=== PATIENT | female | born 1990 | race Caucasian/White ===

== ENCOUNTER 2017-10-28 23:01 | Emergency (ER) | payer MEDICAID, SELFPAY ==
[2017-10-28 23:02] VITALS: BP 157/102; PULSE 102; RESP 16; TEMP 36.3; O2SAT 97; BMI 47.5
[2017-10-29 00:06] LABS: Absolute Lymphocyte Count 2.15 X10^3/ul (0.83-4.51); Absolute Neutrophil Count 9.4 X10^3/uL (2.0-7.7); Basophil# 0.01 X10^3/uL; Basophil% 0.1 % (0-1); Eosinophil# 0.24 X10^3/uL; Eosinophils% 1.9 % (0-5); Hematocrit 45.1 % (37-47); Hemoglobin 14.9 g/dl (12.0-15.0); Lymphocyte # 2.15 X10^3/ul (4.0); Lymphocyte % 16.9 % (19-41); Mean Corpuscular Hgb 26.8 pg (27.0-32.0); Mean Corpuscular Volume 81.3 fL (81-99); Monocyte# 0.88 X10^3/uL; Monocyte% 6.9 % (0-10); Neutrophil # 9.43 X10^3/uL (2.7-7.7); Neutrophil % 73.9 % (47-70); Platelet Count 262 K/mm3 (150-450); RBC Distribution Width CV 14.4 % (11.6-14.6); RBC Distribution Width SD 41.9 fl (35.1-43.9); Red Blood Count 5.55 M/mm3 (4.2-5.4); White Blood Count 12.8 K/mm3 (4.4-11.0)
[2017-10-29 00:12] LABS: POSITIVE COUNT NO; POSITIVE DIFFERENTIAL NO; POSITIVE MORPHOLOGY NO
[2017-10-29 00:27] LABS: ALB/GLOB Ratio 0.8 RATIO (0.9-2.4); AST(SGOT) 22 U/L (15-37); Alanine Aminotransfer ALT/SGPT 41 U/L (13-56); Albumin, Serum 3.5 g/dL (3.2-5.0); Alkaline Phosphatase 118 U/L (45-117); Anion Gap 8 (5-15); BUN 10 mg/dL (7-18); Calcium,Total 8.1 mg/dL (8.5-10.1); Chloride 109 mmol/L (98-107); Creatinine, Serum 0.84 mg/dL (0.55-1.02); EST Glomerular Filtration Rate 87 mL/min (>60); Est Glom Filt Rate - Afr Amer 105 mL/min (>60); Estimated Creatinine Clearance 80.27 ml/min; Globulin 4.4 g/dL (2.2-4.2); Glucose 85 mg/dL (74-106); Lipase 156 U/L (73-393); Potassium 3.9 mmol/L (3.5-5.1); Protein, Total 7.9 g/dL (6.4-8.2); Sodium Level 143 mmol/L (136-145)
[2017-10-29 00:40] LABS: Color, Urine Yellow (Yellow); Glucose, Dipstick Normal (Normal); Ketone-Dipstick Negative (Negative); Leukocyte Esterase-Dipstick 25 /ul (Negative); Nitrite-Dipstick Negative (Negative); Occult Blood-Urine 50 /ul (Negative); Protein-Dipstick Negative (Negative); Urine Bilirubin Dipstick Negative (Negative); Urine Clarity Sl. Cloudy (Clear); Urine Urobilinogen Normal (Normal); Urine pH 6.5 (5.0 - 8.0)
[2017-10-29 00:46] LABS: Hyaline Cast 0-5 SEEN /lpf (0-5); Squamous Epithelial Cells - UA 0-5 SEEN /hpf (5-10)
[2017-10-29 00:47] LABS: Mucous, Urine RARE /hpf (<or=2+); Red Blood Cells-Urine 0-5 SEEN /hpf (0-5); White Blood Cells 0-5 SEEN /hpf (0-5)
[2017-10-29 00:48] LABS: Bacteria RARE /hpf (None Seen)
[2017-10-29 00:51] LABS: Pregnancy, Serum, hCG Quali. NEGATIVE Negative (0-9 Nonpreg)
--- NOTE | 2017-10-29 00:55 | CT_ITS ---
STUDY: CT ABDOMEN AND PELVIS WITHOUT CONTRAST REASON FOR EXAM: Female, 26 years old. Abdominal pain after eating. RADIATION DOSAGE (If Supplied By Facility): CTDIvol = ( 22.83 ) mGy, DLP = ( 1266.17 ) mGycm TECHNIQUE: Transaxial images were obtained from the dome of the diaphragm to the symphysis pubis without oral contrast, and without intravenous contrast. Sagittal and coronal images were reconstructed. Individualized dose optimization techniques were used for this CT. COMPARISON: None. FINDINGS: The visualized lung bases are unremarkable. The visualized portions of the heart are within normal limits. Normal liver. There are surgical clips in the gallbladder fossa consistent with a prior cholecystectomy. Normal spleen. Normal pancreas. Normal bilateral adrenal glands. Normal right kidney. Normal left kidney. Normal visualized stomach. There is no evidence for dilated bowel, ascites or pneumoperitoneum. The small bowel has a grossly normal appearance. The descending colon is not distended which gives appearance of mild thickening of hightower. The colon has a grossly normal appearance otherwise. The appendix is visualized and appears normal. Normal abdominal aorta. Normal inferior vena cava. Normal retroperitoneum. Normal urinary bladder. Normal visualized uterus. The patient has an IUD. There is a small umbilical hernia containing fat. There is narrowing of L5-S1 disc space with vacuum disc phenomenon consistent with degenerative disc disease. CT/Abdomen/Pelvis without Cont IMPRESSION: 1. No CT evidence of acute intra-abdominal disease. 2. Cholecystectomy. Electronically Signed: Bev Cee MD at 2:03 EDT , Service support ,
--- NOTE | 2017-10-29 02:27 | ED.VISSUMM ---
- ER Visit Summary Date of Service: 10/29/17 Chief Complaint: [Abdominal pain] History of Present Illness: The patient is a 26 F [presents to the emergency department with complaint of abdominal pain that started about a month ago. Patient's had pain intermittently. Patient states that it is typically brought on after eating. Patient states it can linger for hours. Patient's had some nausea with it but no vomiting. Patient denies any blood in her stool or black tarry stools. Patient has tried using ibuprofen but does not help the pain. Patient has taken Tums and has not helped the pain. Patient tells me she has had prior cholecystectomy. Patient denies urinary symptoms. Patient has not had a fever.] Physical Examination: [HEENT-PERRLA, EOMI. Cranial nerves II through XII grossly intact. TMs clear. Mucous membranes moist. No adenopathy. Cardiovascular-regular rate and rhythm without murmur or ectopy Lungs-clear to auscultation, chest wall stable without crepitus or subcu emphysema Abdomen-normoactive bowel sounds, soft. Patient has tenderness over the epigastric region with some guarding. There is no rebound, rigidity, or perineal signs. Patient is morbidly obese. Extremities-intact ?4, normal range of motion, normal pulses, atraumatic] Test Results: [CBC with differential showed an elevated white blood cell count of 12.8, hemoglobin 15, hematocrit 45, platelets 262. Chemistries were normal. LFTs unremarkable. Urinalysis was normal. HCG was negative. CT scan without contrast showed nothing acute and showed prior cholecystectomy.] Emergency Department Course and Treatment: [Patient initially given a GI cocktail and she had some improvement in her symptoms with that but then the pain started to come back.] I suspect patient may have gastritis versus peptic ulcer. Treatment Plan: [Patient will be started on Prevacid and will be given a referral to gastroenterology on-call.] Disposition: [Discharged to home in stable condition] Impression: [Abdominal pain-etiology uncertain] This note was generated with [employer] dictation software. It may contain incorrect words, spelling, and punctuation that were not noted in review of the chart prior to signing ED Disposition - Plan for ED Patient: Chief Complaint: Abd Pain Referrals: Care Physician,No Primary [Primary Care Provider] -
--- NOTE | 2017-10-29 02:29 | ED.DEP ---
ED Disposition - Plan for ED Patient: Chief Complaint: Abd Pain Instructions: ED Abdominal Pain Unkn Cause, ED PUD Vs Gastritis Prescriptions: Lansoprazole [Prevacid] 30 mg PO DAILY #30 cap Referrals: Care Physician,No Primary [Primary Care Provider] - Tate Beavers MD [STAFF PHYSICIAN] - 5-7 Days
[2017-10-29 02:37] VITALS: BP 130/68; PULSE 92; RESP 18; O2SAT 95
== END 2017-10-29 02:37 | disposition home or self-care (01) ==
LOC: ED 23:22
PROVIDERS: Emergency Provider Emergency Medicine
DX: R10.13 Epigastric pain (principal); E66.01 Morbid (severe) obesity due to excess calories; Z68.42 Body mass index [BMI] 45.0-49.9, adult; Z90.49 Acquired absence of other specified parts of digestive tract; Z72.0 Tobacco use
CPT/HCPCS: 74176; 80053; 81001; 83690; 84703; 85025; 99285; A4216

== ENCOUNTER 2019-05-10 18:59 | Emergency (ER) | payer MEDICAID, SELFPAY ==
[2019-05-10 19:00] VITALS: BP 160/118; PULSE 117; RESP 17; TEMP 37.3; O2SAT 97; BMI 43.6
--- NOTE | 2019-05-10 19:29 | ED.VIS.GEN ---
History of Present Illness Chief Complaint: Suicidal Informant: Patient Onset: Today Current Severity: Mild Narrative: Patient presents with family and police apparently she has history of depression she is followed by the [facility] she is on medications she is been doing well she indicates she has not been sick anyway no drug or alcohol use no access to guns, indicates she has been under some increasing stress over the last few days and she put a Facebook post up that said something to the effect that I am not going to kill myself do not worry, someone saw that post to call the police the police did not know where she was they went to and address with she thought that she might be she then came out when she knew the police were looking for her, the police insisted that she come to the hospital although she states that her boyfriend who lives with her and knows her quite well states she did not mean to suggest in any way that she was suicidal, She adamantly denies being suicidal she indicates the person read that post misunderstood it, the boyfriend concurs and stating that she is not suicidal or homicidal but did not wish to fight with the police so she came in She is never been admitted for psychiatric reason she has no history of suicide attempt and again no drug or alcohol use no access to guns Past Medical History - Allergies and Home Meds Allergies/Adverse Reactions: Allergies No Known Allergies Allergy (Verified 05/10/19 19:00) Primary Care Physician: Care Physician,No Primary [Primary Care Provider] - Past Medical History: - Smoking Status: Current every day smoker Review of Systems ROS: - Includes as above General: Denies: Chills, Fever, Sweats Eyes: Denies: Visual changes - bilaterally, Diplopia ENT: Denies: Rhinorrhea, Sore throat Cardiovascular: Denies: Chest pain, Palpitations Respiratory: Denies: Dyspnea, Cough, Dyspnea on exertion Gastrointestinal: Denies: Abdominal pain, Nausea, Vomiting, Diarrhea, Melena, Hematochezia Genitourinary: Denies: Dysuria, Hematuria, Frequency Musculoskeletal: Denies: Back pain, Extremity Pain Skin: Denies: Rash, Wounds Neurological: Denies: Headache, Weakness, Numbness Physical Exam Vital Signs/Narrative: Vital Signs Temp Pulse Resp BP Pulse Ox 05/10/19 19:00 99.2 F H 117 H 17 160/118 H 97 General: Well nourished, Well developed, No Acute Distress Head: Normocephalic, Atraumatic Eyes: Perrl, EOMI ENT: Moist mucous membranes, No rhinorrhea Neck: Supple, Nontender Cardiovascular: Regular rate, Regular rhythm, No murmurs Respiratory: No distress, CTA bilaterally, Chest nontender Abdomen: Soft, Nontender, Nondistended, Normal bowel sounds Back: Nontender, Normal Inspection Extremities: Nontender, No edema Skin: Normal color, No rash Neurological: Alert, Oriented x3, Cranial nerves II-XII grossly intact, Normal Strength, Normal Sensation Psychological: Normal affect, Normal Mood Diagnostic/Tx/Re-eval - Medical Decision Making Patient is resting company the bed she is very awake and alert oriented very cooperative has quite a bit of insight had a long conversation with her and the boyfriend she assures me she is not suicidal she indicates that she realizes now she would not have put that post on [place] to the general community, she again indicates she has no intention of hurting herself or others she does agree to stay in the emergency department under observation will obtain some screening labs, will have certified social workers in health care talk to her The patient had limited screening labs as additional blood could not be drawn she did not wish to have additional attempts made, the screening that is available is generally unremarkable urine tox positive for cannabis, certified social workers in health care spoke with her they agree she can be safe to be discharged to follow-up with crisis counselor tomorrow and return for change in symptoms boyfriend the patient again concur that there is no signs of suicidal ideation or homicidal ideation Impression final Situational stress and depression Home stable ED Disposition - Plan for ED Patient: Diagnosis: Depression Instructions: Depression, CONTRACT, No Harm Referrals: Care Physician,No Primary [Primary Care Provider] - Additional Instructions: Follow up with crisis counselor as instructed tomorrow return for change in symptoms
--- NOTE | 2019-05-10 19:35 | ED.RN ---
dr. carlos in to see patient. Patient at this time does not need a sitter. Doctor thinks patient made an emotional outburst and has no intention of SI. We will watch patient at this time and complete blood work. Social work to see patient at this time
[2019-05-10 19:47] LABS: Amphetamine Urine VISTA NEGATIVE (<1000 ng/mL); Barbiturate Urine VISTA NEGATIVE (< 200 ng/mL); Benzodiazepine Urine VISTA NEGATIVE (< 200 ng/mL); Cocaine Urine VISTA NEGATIVE (< 300 ng/mL); Ecstacy Urine VISTA NEGATIVE (< 500 ng/mL); Methadone Urine VISTA NEGATIVE (< 300 ng/mL); PCP Urine VISTA NEGATIVE (< 25 ng/mL); THC Urine VISTA POSITIVE (< 50 ng/mL); Vista UDS pH Range 6
--- NOTE | 2019-05-10 19:49 | CM.ED ---
Social Work Consult: Suicidal Informant: Dr. Mina Chief Complaint: I posted something on Facebook. I have no plan to kill myself. Marital/Social History: from spouse, Deon. Currently in 8 month relationship with, Damien. Has three children ages 3, 5, and 6 with Deon. Deon and patient have been doing shared parenting. Patient stating trigger for depressed mood today was not having the kids. Patient stating that a stressor for patiently lately is the going back and forth with the kids. Patient stating that this is the first year that patient is at home alone as patient children are now all in school. Patient stating to be working through the days that patient family is at school or with Deon. Damien works outside of the home but is home during the evenings. Living Situation: Lives with Damien. Support/Resources: [facility]cted with the [facility]. Damien and patient sister are positive support for patient. Education/Employment: Disability due to mental health diagnosis. Three days from finishing 12th grade. Mental Health Treatment/History: Patient diagnosed with depression, and bi-polar. Patient manages mental health with medication. Patient follows with Dr. Simmons (counselor) at the counseling center as well as mamie for bed rubber. Patient stating it has been a few months since patient has made it to an appointment. Patient denies any inpatient psychiatric placement history. Abuse Issues: Denies Substance Abuse Hx: Smokes 1/2 ppd of tobacco. Denies any other substance usage/abuse. Mental Status Exam: A&Ox3 Appearance/General Behavior: Clean/Appropriate. Tearful at times. Mood/Affect: Appropriate. Engaged in conversation. Communication Pattern: Responds to questions. Thought Process: Denies hallucinations, delusions or paranoid behavior. Risk to Self/Others: Patient stating to have fleeting suicidal thoughts. Patient denies having any plan to complete suicide or any attempt. Patient stating that when patient has suicidal thoughts to think of patient children and to want to live for them. Patient stating to also be working towards the goal of having own apartment. Assessment: Met with patient and patient sig. other in room. This social service agency director introduced self as well as social service agency director role. Patient agreeable to meeting with this social service agency director. Patient stating I do not want to kill myself. Patient stating to have posted a I can't even kill myself, kids us a gun. This social service agency director and patient able to discuss the concerns of this statement and what lead the individual who reported the statement to reporting patient comment. Patient stating understanding as to why someone would notify police with above statement from Facebook. Patient stating I care too much about my kids and future. Patient sig. other, Damien present and also providing support. Patient stating that patient grandma 2 years ago and that patient grandma is who kept patient organized with appointments, she was my rock. Able to broach topic of importance of maintaining mental health and appointment. Patient voicing understanding and voicing intention to follow up with mental health appointments. Patient open to this social service agency director setting up crisis follow-up appointment tomorrow for patient and then patient can set up further counseling services from there. Patient stating that counseling is beneficial for patient. Collaborating with Dr. Mina. Impression is that patient is safe to safety plan to home. Protective Factors: Children, goal of getting own apartment, lives with sig. other. Forward thinking behavior observed. Telephone call to [facility], was able to set up crisis follow up appointment for 05/11/19 at 10:00am. Provided patient with crisis hotline information as well as appointment reminder. Patient is also agreeable to social service agency director contacting patient tomorrow to follow-up on how patient is doing. PLAN: Discharge to home with Tony. Luann HUGHES, DIONE
[2019-05-10 20:06] LABS: Absolute Lymphocyte Count 1.49 X10^3/uL (0.83-4.51); Absolute Neutrophil Count 11.2 X10^3/uL (2.0-7.7); Basophil# 0.02 X10^3/uL; Basophil% 0.1 % (0-1); Eosinophil# 0.06 X10^3/uL; Eosinophils% 0.4 % (0-5); Hematocrit 48.2 % (37-47); Hemoglobin 14.5 g/dL (12.0-15.0); Lymphocyte # 1.49 X10^3/ul (4.0); Lymphocyte % 11.1 % (19-41); Mean Corp Hgb Conc 30.1 g/dL (32-36); Mean Corpuscular Hgb 27.4 pg (27.0-32.0); Mean Corpuscular Volume 91.1 fL (81-99); Mean Platelet Vol. 10.2 fl (6.2-12.0); Monocyte% 4.5 % (0-10); NRBC Flagged by Analyzer 0 % (0-5); Neutrophil # 11.15 X10^3/uL (2.7-7.7); Neutrophil % 83.5 % (47-70); Platelet Count 230 K/mm3 (150-450); RBC Distribution Width CV 13.5 % (11.6-14.6); RBC Distribution Width SD 44.9 fl (35.1-43.9); Red Blood Count 5.29 M/mm3 (4.2-5.4); White Blood Count 13.4 K/mm3 (4.4-11.0)
[2019-05-10 20:27] VITALS: PULSE 85; RESP 16; O2SAT 96
[2019-05-10 20:33] LABS: Anion Gap 10 (5-15); BUN 5 mg/dL (7-18); BUN/Creat Ratio 7.1 RATIO (10-20); Calcium,Total 8.9 mg/dL (8.5-10.1); Chloride 109 mmol/L (98-107); EST Glomerular Filtration Rate 105 mL/min (>60); Est Glom Filt Rate - Afr Amer 128 mL/min (>60); Estimated Creatinine Clearance 94.63 ml/min; Glucose 101 mg/dL (74-106); Potassium 3.8 mmol/L (3.5-5.1); Sodium Level 139 mmol/L (136-145)
[2019-05-10 20:36] LABS: Internal QC Validated? YES +Cl - CLEAR BKGD; Pregnancy, Serum, hCG Quali. NEGATIVE Negative
--- NOTE | 2019-05-11 13:47 | CM.ED ---
SOCIAL WORK FOLLOW UP PHONE CALL MADE TO PATIENT. PATIENT REPORTS ATTENDED CRISIS FOLLOW UP APPOINTMENT THIS MORNING. PATIENT STATES NEXT APPOINTMENT IS 05/23/19 AT 11AM. PATIENT STATES DOING BETTER TODAY. SUPPORT AND ENCOURAGEMENT PROVIDED. SAUL FRANKEL, ACID WASH OPERATOR.
== END 2019-05-10 20:28 | disposition home or self-care (01) ==
LOC: ED 19:55
PROVIDERS: Emergency Provider Emergency Medicine
DX: F43.21 Adjustment disorder with depressed mood (principal); F17.210 Nicotine dependence, cigarettes, uncomplicated
CPT/HCPCS: 80048; 80307; 80320; 84703; 85025; 99285; G0480

== ENCOUNTER 2019-10-19 16:06 | Emergency (ER) | payer MEDICAID, SELFPAY ==
[2019-10-19 16:06] VITALS: BP 140/88; PULSE 114; RESP 16; TEMP 37.2; BMI 42.0
--- NOTE | 2019-10-19 16:21 | CT_ITS ---
STUDY: CT ABDOMEN AND PELVIS WITH CONTRAST REASON FOR EXAM: Female, 28 years old. Left-sided pain since August. Epigastric pain for one month. Difficulty keeping food and liquids down. RADIATION DOSAGE (If Supplied By Facility): CTDIvol = ( 20.52 ) mGy, DLP = ( 2297.69 ) mGycm TECHNIQUE: Transaxial images were obtained from the dome of the diaphragm to the symphysis pubis with oral contrast. Oral and amp; IV Gastrografin and amp; 100mL Isovue-300 was administered. Sagittal and coronal images were reconstructed. Individualized dose optimization techniques were used for this CT. COMPARISON: October 29, 2017. FINDINGS: The visualized lung bases are unremarkable. The visualized portions of the heart are within normal limits. Mildly enlarged liver. There are surgical clips in the gallbladder bed. There is also soft tissue density can containing calcifications which may represent stones within a distended cystic duct. This appears unchanged from the prior study. The spleen is enlarged. Normal pancreas. Normal bilateral adrenal glands. Normal right kidney. Small cyst in the upper pole of an otherwise normal left kidney. Normal bilateral ureters. Normal visualized stomach. Normal small intestine. Normal colon. The appendix is visualized and appears normal. Normal abdominal aorta. Normal inferior vena cava. Retroaortic left renal vein. Normal retroperitoneum. Normal urinary bladder. Uterus is anteverted and tilted to the left. There is an IUD within the fundus. Normal ovaries. There is no pelvic lymphadenopathy. No free air or free fluid is seen within the peritoneal cavity. Umbilical hernia of omental fat. The abdominal wall is otherwise unremarkable. There is minimal degenerative changes of the lumbar spine most marked at L5-S1. CT/Abdomen/Pelvis WITH Contrast IMPRESSION: 1. Mild hepatosplenomegaly unchanged from prior study. 2. Findings suggestive of prior cholecystectomy. There is calcifications within a mildly distended area adjacent to the surgical site. Question stones within a distended cystic duct. The findings are unchanged from prior exam. 3. No evidence of acute intra-abdominal or pelvic abnormality or major interval change. Electronically Signed: Troy Mariee DO at 18:33 EDT Tel [phone], Service support ,
--- NOTE | 2019-10-19 16:22 | ED.DCSUM_ITS ---
- ER Visit Summary Date of Service: 10/19/19 Chief Complaint: Abdominal pain History of Present Illness: The patient is a 28 F who presents with abdominal pain that is been constant for the past 5 days. Patient states the pain is sharp. Patient states pain is over the left upper quadrant and left flank area. Patient states the pain is worse whenever she presses on the area. Patient admits to nausea and vomiting but denies any hematemesis or coffee-ground emesis. Patient denies any diarrhea, melena, or hematochezia. Patient denies any dysuria or hematuria. Patient states her last menstrual period was 7 years ago. Patient admits to subjective chills but denies any fevers. Patient admits to a mild headache today. Physical Examination: Vital signs are stable. Patient is afebrile. Patient is in no acute distress. Oral mucosa is pink and moist. Neck is supple. Trachea is midline. There is no JVD noted. Heart was regular rate and rhythm. Lungs are clear and equal bilaterally. Abdomen is soft. Bowel sounds are normal. There is left upper quadrant tenderness. There is no rebound or guarding noted. Skin is warm dry. Cranial nerves II through XII are intact. There are no focal motor or sensory deficits noted. Extremities are intact. There is no calf tenderness or edema. Test Results: CBC shows a mild leukocytosis of 12.4. Comprehensive metabolic profile and lipase were obtained and were essentially within normal limits. Ser um hCG was negative. CT scan of the abdomen and pelvis was obtained. There is no acute intra-abdominal process. Urinalysis shows evidence of urinary tract infection with leukocyte esterase of 500 and positive nitrates. There were greater than 100 white blood cells. Occult blood was 150 with 25-50 red blood cells. There is 0-5 epithelial cells. Emergency Department Course and Treatment: Patient was given IV fluids, Zofran, and morphine. Patient was given a dose of Rocephin here. Patient was given a prescription for Macrobid. Patient was instructed to drink plenty of fluids. Patient was instructed to follow-up with her primary care physician in 5 to 7 days. Patient was instructed to take Tylenol or ibuprofen as needed for any fevers or pain. Patient and family understood and were agreeable with the plan. All questions were answered. Disposition: Discharge home Impression: Urinary tract infection This note was generated with [employer] dictation software. It may contain incorrect words, spelling, and punctuation that were not noted in review of the chart prior to signing ED Disposition - Plan for ED Patient: Disposition: Home or Assisted Living Diagnosis: Urinary tract infection Instructions: Bladder Infection, Female (Adult) Prescriptions: Nitrofurantoin Macrocrystals [Macrobid] 100 mg PO Q12 #14 cap Prescription Printed Ondansetron [Zofran Odt] 4 mg PO Q8H PRN PRN #10 tab PRN Reason: Nausea Prescription Printed Referrals: Care Physician,No Primary [Primary Care Provider] - Shruthi Fam MD [STAFF PHYSICIAN] - 5-7 Days
[2019-10-19 16:36] VITALS: RESP 18
[2019-10-19] MEDS: Morphine 4 MG/ML Syringe IV (16:48)
[2019-10-19] MEDS: Ondansetron 4 MG/2 ML Vial IV (16:48)
[2019-10-19] MEDS: 0.9% Normal Saline 1,000 ML 1000 ML IV (16:49)
[2019-10-19 16:55] VITALS: O2SAT 98
[2019-10-19 17:18] LABS: Absolute Neutrophil Count 10.3 X10^3/uL (2.0-7.7); Basophil# 0.01 X10^3/uL; Basophil% 0.1 % (0-1); Eosinophil# 0.03 X10^3/uL; Eosinophils% 0.2 % (0-5); Hematocrit 42.9 % (37-47); Hemoglobin 13.8 g/dL (12.0-15.0); Lymphocyte % 7.2 % (19-41); Mean Corp Hgb Conc 32.2 g/dL (32-36); Mean Corpuscular Hgb 26.6 pg (27.0-32.0); Mean Corpuscular Volume 82.7 fL (81-99); Mean Platelet Vol. 10.7 fl (6.2-12.0); Monocyte# 1.19 X10^3/uL; Monocyte% 9.6 % (0-10); NRBC Flagged by Analyzer 0 % (0-5); Neutrophil # 10.25 X10^3/uL (2.7-7.7); Neutrophil % 82.6 % (47-70); Platelet Count 178 K/mm3 (150-450); RBC Distribution Width CV 13.3 % (11.6-14.6); Red Blood Count 5.19 M/mm3 (4.2-5.4); White Blood Count 12.4 K/mm3 (4.4-11.0)
[2019-10-19 17:53] LABS: Internal QC Validated? YES +Cl - CLEAR BKGD; Pregnancy, Serum, hCG Quali. NEGATIVE Negative
[2019-10-19 17:54] LABS: ALB/GLOB Ratio 0.7 RATIO (0.9-2.4); AST(SGOT) 17 U/L (15-37); Alanine Aminotransfer ALT/SGPT 27 U/L (13-56); Albumin, Serum 3.2 g/dL (3.2-5.0); Alkaline Phosphatase 125 U/L (45-117); Anion Gap 10 (5-15); BUN 10 mg/dL (7-18); BUN/Creat Ratio 12.2 RATIO (10-20); Calcium,Total 8.8 mg/dL (8.5-10.1); Chloride 101 mmol/L (98-107); Creatinine, Serum 0.82 mg/dL (0.55-1.02); EST Glomerular Filtration Rate 87 mL/min (>60); Est Glom Filt Rate - Afr Amer 106 mL/min (>60); Estimated Creatinine Clearance 80.78 ml/min; Globulin 4.8 g/dL (2.2-4.2); Glucose 79 mg/dL (74-106); Lipase 49 U/L (73-393); Potassium 3.3 mmol/L (3.5-5.1); Sodium Level 135 mmol/L (136-145)
[2019-10-19 18:37] VITALS: BP 143/97; PULSE 98; RESP 16; O2SAT 97
[2019-10-19 18:42] LABS: Mucous, Urine 0 SEEN /hpf (<or=2+)
[2019-10-19 18:44] LABS: Color, Urine Yellow (Yellow); Glucose, Dipstick Normal (Normal); Leukocyte Esterase-Dipstick 500 /ul (Negative); Nitrite-Dipstick Positive (Negative); Occult Blood-Urine 150 /ul (Negative); Protein-Dipstick 30 mg/dl (Negative); Urine Bilirubin Dipstick Negative (Negative); Urine Clarity Cloudy (Clear); Urine Urobilinogen 4 mg/dl (Normal)
[2019-10-19 18:48] LABS: Ketone-Dipstick 150 mg/dl (Negative)
[2019-10-19 18:50] LABS: Bacteria RARE /hpf (None Seen); Red Blood Cells-Urine 25-50 SEEN /hpf (0-5); Squamous Epithelial Cells - UA 0-5 SEEN /hpf (5-10); White Blood Cells >100 SEEN /hpf (0-5)
[2019-10-19 18:51] LABS: Amorphous Sediment 1+ URATE
--- NOTE | 2019-10-19 19:28 | ED.RN ---
called pharmacy about antibiotic @192.
[2019-10-19] MEDS: Ceftriaxone 1 GM/50 ML BAG IV (19:36)
[2019-10-19 20:22] VITALS: BP 116/77; PULSE 90; RESP 16; O2SAT 97
== END 2019-10-19 20:24 | disposition home or self-care (01) ==
PROVIDERS: Emergency Provider Emergency Medicine
DX: N39.0 Urinary tract infection, site not specified (principal); E66.9 Obesity, unspecified; Z72.0 Tobacco use
CPT/HCPCS: 36415; 74177; 80053; 81001; 83690; 84703; 85025; 94760; 96361; 96365; 96375; 99283; J7030; J7050; Q9967; A4216; J2405

== ENCOUNTER 2019-11-04 03:08 | Emergency (ER) | payer MEDICAID, SELFPAY ==
[2019-11-04 03:09] VITALS: BP 146/123; PULSE 77; RESP 29; TEMP 36.6; O2SAT 100; BMI 42.0
--- NOTE | 2019-11-04 03:23 | ED.VIS.GEN ---
History of Present Illness Chief Complaint: Nausea/Vomiting/Diarrhea Detail of Chief Complaint: Abdominal pain Informant: Patient Onset: Weeks Context: Gradual Onset Timing: Waxes and wanes Current Severity: Moderate Maximum Severity: Moderate Narrative: Patient was recently seen for left flank pain secondary to UTI. She states her left flank pain improved but she is been having intermittent epigastric pain. Pain got significantly worse this morning. She is had some intermittent nausea and vomiting for the past couple weeks but that became worse this morning as well. Patient also developed chills and diarrhea. She does report a cough when she vomits. She has had prior cholecystectomy. - Past Medical History (1) Depression Status: Chronic (2) Hx of cholecystectomy Status: Chronic Past Medical History - Allergies and Home Meds Allergies/Adverse Reactions: Allergies No Known Allergies Allergy (Verified 10/19/19 16:10) Primary Care Physician: Care Physician,No Primary [Primary Care Provider] - Prior records reviewed: Yes Lives: With Family Smoking Status: Current every day smoker Review of Systems General: Reports: Chills. Denies: Fever Eyes: Denies: Visual changes - bilaterally ENT: Denies: Bilateral ear pain Cardiovascular: Denies: Chest pain Respiratory: Reports: Cough. Denies: Dyspnea Gastrointestinal: Reports: Abdominal pain, Nausea, Vomiting, Diarrhea Genitourinary: Denies: Dysuria Musculoskeletal: Denies: Swelling, Extremity Pain Skin: Denies: Rash Neurological: Denies: Headache Allergy: Denies: Uticaria Physical Exam Vital Signs/Narrative: Vital Signs Temp Pulse Resp BP Pulse Ox 11/04/19 03:09 97.8 F 77 29 H 146/123 H 100 Inital Vital Signs reviewed: Yes General: Well nourished, Well developed Head: Normocephalic ENT: Moist mucous membranes Neck: Supple Cardiovascular: Regular rate, Regular rhythm Respiratory: No distress, CTA bilaterally Abdomen: Soft, Tender - Epigastric tenderness to palpation., Hypoactive bowel sounds. Negative for: Guarding, Rebound tenderness Extremities: Nontender Skin: Normal color Neurological: Alert, Oriented x3 Psychological: Normal affect Diagnostic/Tx/Re-eval Laboratory Results 11/04/19 11/04/19 11/04/19 03:23 03:23 03:23 WBC 9.8 RBC 5.50 H Hgb 14.6 Hct 44.0 MCV 80.0 L MCH 26.5 L MCHC 33.2 RDW Std Deviation 38.9 RDW Coeff of Sandra 13.7 Plt Count 224 MPV 10.8 Immature Gran % (Auto) 0.400 Neut % (Auto) 71.5 H Lymph % (Auto) 19.8 [place] % (Auto) 6.8 Eos % (Auto) 1.3 Baso % (Auto) 0.2 Absolute Neuts (auto) 7.0 Absolute Lymphs (auto) 1.93 Nucleated RBC % 0 Sodium 136 Potassium 3.9 Chloride 103 Carbon Dioxide 23.0 Anion Gap 10 BUN 9 Creatinine 0.96 Estim Creat Clear Calc 69.00 Est GFR (MDRD) Af Amer 88 Est GFR (MDRD) Non-Af 73 BUN/Creatinine Ratio 9.4 L Glucose 85 Calcium 9.1 Total Bilirubin 1.00 Direct Bilirubin 0.13 AST 40 H ALT 51 Alkaline Phosphatase 106 Total Protein 8.2 Albumin 3.9 Globulin 4.3 H Lipase 79 Serum , Qual NEGATIVE - Medical Decision Making Patient is initially given morphine, Zofran, and IV fluids. On repeat evaluation she was sitting up in bed and still dry heaving. She was then given a dose of Phenergan. On repeat examination at that time patient was sitting upright in bed purposely trying to vomit. She states she still had some upper abdominal pain and thought that vomiting would make her feel better. Her vomit bag is empty. Patient was given an IM injection of Bentyl as well as Pepcid. At this time patient is lying back in bed resting comfortably. She states she still has some pain but it is improved. Pain is all focal in the epigastrium. Laboratory examination is unremarkable and she is already had a cholecystectomy. She has been on antibiotics recently and this may have caused some gastritis. She will be given prescriptions for Zofran, Phenergan, as well as Bentyl at home. She is given return instructions. ED Disposition - Plan for ED Patient: Disposition: Home or Assisted Living Diagnosis: Gastritis, Vomiting Instructions: ED Nausea Vomiting Adult, ED Gastritis Prescriptions: Dicyclomine HCl [Bentyl] 20 mg PO TIDAC #20 cap Prescription Printed proMETHazine tablet [Phenergan] 25 mg PO Q6H PRN PRN #10 tab PRN Reason: Nausea Prescription Printed Ondansetron [Zofran Odt] 4 mg PO Q8H PRN PRN #10 tab PRN Reason: Nausea Prescription Printed Referrals: Wali Wood MD [STAFF PHYSICIAN] - As Needed
[2019-11-04] MEDS: Ondansetron 4 MG/2 ML Vial IV (03:28)
[2019-11-04] MEDS: Morphine 4 MG/ML Syringe IV (03:29)
[2019-11-04 03:35] VITALS: BP 147/97; PULSE 90; RESP 20; O2SAT 100
[2019-11-04] MEDS: 0.9% Normal Saline 1,000 ML 150 ML IV (03:35)
[2019-11-04 03:42] LABS: Absolute Lymphocyte Count 1.93 X10^3/uL (0.83-4.51); Basophil# 0.02 X10^3/uL; Basophil% 0.2 % (0-1); Eosinophil# 0.13 X10^3/uL; Eosinophils% 1.3 % (0-5); Hemoglobin 14.6 g/dL (12.0-15.0); Lymphocyte # 1.93 X10^3/ul (4.0); Lymphocyte % 19.8 % (19-41); Mean Corp Hgb Conc 33.2 g/dL (32-36); Mean Corpuscular Hgb 26.5 pg (27.0-32.0); Mean Platelet Vol. 10.8 fl (6.2-12.0); Monocyte# 0.66 X10^3/uL; Monocyte% 6.8 % (0-10); NRBC Flagged by Analyzer 0 % (0-5); Neutrophil # 6.99 X10^3/uL (2.7-7.7); Neutrophil % 71.5 % (47-70); Platelet Count 224 K/mm3 (150-450); RBC Distribution Width CV 13.7 % (11.6-14.6); RBC Distribution Width SD 38.9 fl (35.1-43.9); White Blood Count 9.8 K/mm3 (4.4-11.0)
[2019-11-04 04:00] LABS: AST(SGOT) 40 U/L (15-37); Alanine Aminotransfer ALT/SGPT 51 U/L (13-56); Albumin, Serum 3.9 g/dL (3.2-5.0); Alkaline Phosphatase 106 U/L (45-117); Anion Gap 10 (5-15); BUN 9 mg/dL (7-18); BUN/Creat Ratio 9.4 RATIO (10-20); Bilirubin, Direct 0.13 mg/dL (0.00-0.30); Calcium,Total 9.1 mg/dL (8.5-10.1); Chloride 103 mmol/L (98-107); Creatinine, Serum 0.96 mg/dL (0.55-1.02); EST Glomerular Filtration Rate 73 mL/min (>60); Est Glom Filt Rate - Afr Amer 88 mL/min (>60); Globulin 4.3 g/dL (2.2-4.2); Glucose 85 mg/dL (74-106); Lipase 79 U/L (73-393); Potassium 3.9 mmol/L (3.5-5.1); Protein, Total 8.2 g/dL (6.4-8.2); Sodium Level 136 mmol/L (136-145)
[2019-11-04 04:08] LABS: Internal QC Validated? YES +Cl - CLEAR BKGD; Pregnancy, Serum, hCG Quali. NEGATIVE Negative
[2019-11-04] MEDS: proMETHazine 25 MG/ML Syringe 12.5 MG IV (04:21)
[2019-11-04 04:22] VITALS: BP 157/97; PULSE 68; RESP 24; O2SAT 100
[2019-11-04] MEDS: Famotidine 200 MG/20 ML MDV 20 MG in 0.9% Normal Saline (Pres. free 8 ML 300 MG IV (05:32)
[2019-11-04] MEDS: Dicyclomine 20 MG/2 ML Vial IM (05:35)
[2019-11-04 05:37] VITALS: BP 154/103; PULSE 62; RESP 18; O2SAT 99
[2019-11-04 07:17] VITALS: BP 144/86; PULSE 76; RESP 18; O2SAT 99
== END 2019-11-04 07:27 | disposition home or self-care (01) ==
PROVIDERS: Emergency Provider Emergency Medicine
DX: K29.70 Gastritis, unspecified, without bleeding (principal); F17.200 Nicotine dependence, unspecified, uncomplicated
CPT/HCPCS: 80048; 80076; 83690; 84703; 85025; 96365; 96366; 96372; 96375; 99285; J7030; J2405; J3490

== ENCOUNTER 2019-11-05 10:28 | Emergency (ER) | payer MEDICAID, SELFPAY ==
[2019-11-04 03:09] VITALS: BMI 42.0
[2019-11-05 10:29] VITALS: BP 146/95; PULSE 63; RESP 18; TEMP 36.6; O2SAT 99; BMI 40.2
--- NOTE | 2019-11-05 10:38 | ED.DCSUM_ITS ---
- ER Visit Summary Date of Service: 11/05/19 Chief Complaint: Abdominal pain, vomiting, concerned about vomiting blood History of Present Illness: The patient is a 28 F who presents with the above symptoms. She was seen here yesterday and had a negative work-up. It was thought that she had some gastritis due to recent antibiotic use. She states that she continued to vomit throughout the night despite the medications given yesterday which included Phenergan and Zofran. She had some brown specks in her vomit and she was concerned about vomiting blood. She denies any dysuria hematuria. No diarrhea. She denies fevers. She has had a cholecystectomy in the past. Physical Examination: Vital signs reviewed. HEENT exam unremarkable. Heart is regular rate and rhythm without murmurs. Lungs are clear to auscultation. Abdomen is soft with suprapubic tenderness to palpation. Extremities reveal no edema. Skin exam normal. Neurologic exam normal. Test Results: White blood cell count 12.3. Otherwise labs are unremarkable. Emergency Department Course and Treatment: The patient was given a GI cocktail. This did not help her pain so I gave her a dose of morphine. I feel this is still likely some gastritis as her pain is epigastric in nature. I will add Carafate to her treatment regimen. She will need to follow-up with her PCP for further testing if symptoms persist Treatment Plan: [] Disposition: Discharge Impression: epiGastric abdominal pain This note was generated with [employer] dictation software. It may contain incorrect words, spelling, and punctuation that were not noted in review of the chart prior to signing ED Disposition - Plan for ED Patient: Disposition: Home or Assisted Living Instructions: ED Abdominal Pain Unkn Cause Fem Prescriptions: Sucralfate [Carafate] 1 gm PO 4X/DAY #60 tab Transmission Status: Pending to [facility] Referrals: Care Physician,No Primary [Primary Care Provider] -
[2019-11-05] MEDS: Mag Hydrox/Al Hydrox/Simeth 30 ML UDC PO (10:45)
[2019-11-05 11:03] LABS: Absolute Lymphocyte Count 0.93 X10^3/uL (0.83-4.51); Absolute Neutrophil Count 10.8 X10^3/uL (2.0-7.7); Basophil# 0.01 X10^3/uL; Basophil% 0.1 % (0-1); Eosinophil# 0.01 X10^3/uL; Eosinophils% 0.1 % (0-5); Lymphocyte # 0.93 X10^3/ul (4.0); Lymphocyte % 7.6 % (19-41); Mean Corp Hgb Conc 32.6 g/dL (32-36); Mean Corpuscular Hgb 26.5 pg (27.0-32.0); Mean Corpuscular Volume 81.1 fL (81-99); Mean Platelet Vol. 11.2 fl (6.2-12.0); Monocyte# 0.53 X10^3/uL; Monocyte% 4.3 % (0-10); NRBC Flagged by Analyzer 0 % (0-5); Neutrophil # 10.78 X10^3/uL (2.7-7.7); Neutrophil % 87.7 % (47-70); Platelet Count 247 K/mm3 (150-450); RBC Distribution Width CV 13.6 % (11.6-14.6); RBC Distribution Width SD 39.1 fl (35.1-43.9); Red Blood Count 5.67 M/mm3 (4.2-5.4); White Blood Count 12.3 K/mm3 (4.4-11.0)
[2019-11-05 11:19] LABS: ALB/GLOB Ratio 0.9 RATIO (0.9-2.4); AST(SGOT) 21 U/L (15-37); Alanine Aminotransfer ALT/SGPT 37 U/L (13-56); Albumin, Serum 3.8 g/dL (3.2-5.0); Alkaline Phosphatase 95 U/L (45-117); Anion Gap 9 (5-15); BUN 7 mg/dL (7-18); BUN/Creat Ratio 8.5 RATIO (10-20); Calcium,Total 9.1 mg/dL (8.5-10.1); Chloride 104 mmol/L (98-107); Creatinine, Serum 0.83 mg/dL (0.55-1.02); EST Glomerular Filtration Rate 87 mL/min (>60); Est Glom Filt Rate - Afr Amer 105 mL/min (>60); Estimated Creatinine Clearance 79.81 ml/min; Globulin 4.2 g/dL (2.2-4.2); Glucose 87 mg/dL (74-106); Lipase 89 U/L (73-393); Potassium 3.6 mmol/L (3.5-5.1); Sodium Level 137 mmol/L (136-145)
[2019-11-05] MEDS: HYDROcodone Bitartrate/Apap 5/325 Tablet PO (12:04)
[2019-11-05 12:09] VITALS: BP 118/62; PULSE 88; RESP 18; O2SAT 98
== END 2019-11-05 12:11 | disposition home or self-care (01) ==
PROVIDERS: Emergency Provider Emergency Medicine
DX: R10.13 Epigastric pain (principal); R11.10 Vomiting, unspecified; Z90.49 Acquired absence of other specified parts of digestive tract; Z72.0 Tobacco use
CPT/HCPCS: 80053; 83690; 85025; 99285; A4216

== ENCOUNTER 2019-12-12 09:57 | Emergency (ER) | payer MEDICAID, SELFPAY ==
[2019-12-12 09:58] VITALS: BP 147/92; PULSE 74; RESP 14; TEMP 36.2; O2SAT 98; BMI 39.6
--- NOTE | 2019-12-12 10:20 | ED.DCSUM_ITS ---
- ER Visit Summary Date of Service: 12/12/19 Chief Complaint: Epigastric abdominal pain History of Present Illness: The patient is a 29 F for depression and reflux. Prior cholecystectomy. Patient states she has midepigastric dull pain began yesterday. Associated nausea, vomiting diarrhea. No melena no hematemesis. No fever or chills. No dysuria. Had a prior episode earlier this year. Not get a specific diagnosis. Gastritis was a consideration at that time. She is never had upper endoscopy. Physical Examination: Young female no acute distress vital signs stable afebrile. H EENT exam unremarkable other than mildly dry mucous membranes. Neck nontender. No lymphadenopathy. Lungs clear to auscultation bilaterally. Heart regular rhythm no murmur. Abdomen is soft and nontender. She points epigastric pain is not specifically tender. Both the right upper and right lower quadrants are unremarkable. She is nondistended there is no signs of obstruction. No hernia or masses. Soft abdomen with positive bowel sounds. Extremities moves all 4. Calves nontender without edema or cords. Neurologically she is awake alert with no focal motor deficits. Back nontender. Test Results: Is a white count of 14 she has had elevated white counts before. Hemoglobin 14. Chemistries unremarkable potassium 3.3. Normal BUN, creatinine and gap. Normal liver enzymes. Normal lipase. Emergency Department Course and Treatment: Patient treated with IV fluids for mild dehydration. Zofran for nausea. GI cocktail for reflux. Screening labs being obtained. Treatment Plan: Repeat exam at 11:06 AM patient doing well. She is had some improvement. She and I discussed her test results and follow-up. Disposition: Discharge Impression: Acute epigastric abdominal pain Acute gastritis This note was generated with [employer] dictation software. It may contain incorrect words, spelling, and punctuation that were not noted in review of the chart prior to signing ED Disposition - Plan for ED Patient: Referrals: Care Physician,No Primary [Primary Care Provider] -
[2019-12-12] MEDS: Pantoprazole Sodium 40 MG Tablet PO (10:30)
[2019-12-12] MEDS: 0.9% Normal Saline 1,000 ML 1000 ML IV (10:30)
[2019-12-12] MEDS: Mag Hydrox/Al Hydrox/Simeth 30 ML UDC PO (10:30)
[2019-12-12] MEDS: Ondansetron 4 MG/2 ML Vial IV (10:30)
[2019-12-12 10:39] LABS: Absolute Lymphocyte Count 1.25 X10^3/uL (0.83-4.51); Absolute Neutrophil Count 12.3 X10^3/uL (2.0-7.7); Basophil# 0.01 X10^3/uL; Basophil% 0.1 % (0-1); Hematocrit 45.4 % (37-47); Hemoglobin 14.9 g/dL (12.0-15.0); Lymphocyte # 1.25 X10^3/ul (4.0); Lymphocyte % 8.8 % (19-41); Mean Corp Hgb Conc 32.8 g/dL (32-36); Mean Corpuscular Hgb 27.6 pg (27.0-32.0); Mean Corpuscular Volume 84.1 fL (81-99); Mean Platelet Vol. 10.4 fl (6.2-12.0); Monocyte# 0.46 X10^3/uL; Monocyte% 3.2 % (0-10); NRBC Flagged by Analyzer 0 % (0-5); Neutrophil # 12.34 X10^3/uL (2.7-7.7); Neutrophil % 87.1 % (47-70); Platelet Count 281 K/mm3 (150-450); RBC Distribution Width CV 14.9 % (11.6-14.6); RBC Distribution Width SD 45.6 fl (35.1-43.9); White Blood Count 14.2 K/mm3 (4.4-11.0)
[2019-12-12 10:55] LABS: ALB/GLOB Ratio 0.9 RATIO (0.9-2.4); AST(SGOT) 15 U/L (15-37); Alanine Aminotransfer ALT/SGPT 27 U/L (13-56); Albumin, Serum 3.6 g/dL (3.2-5.0); Alkaline Phosphatase 96 U/L (45-117); Anion Gap 9 (5-15); BUN 6 mg/dL (7-18); BUN/Creat Ratio 7.2 RATIO (10-20); Calcium,Total 8.9 mg/dL (8.5-10.1); Chloride 107 mmol/L (98-107); Creatinine, Serum 0.84 mg/dL (0.55-1.02); EST Glomerular Filtration Rate 86 mL/min (>60); Est Glom Filt Rate - Afr Amer 104 mL/min (>60); Estimated Creatinine Clearance 78.16 ml/min; Globulin 4.1 g/dL (2.2-4.2); Glucose 103 mg/dL (74-106); Lipase 63 U/L (73-393); Potassium 3.3 mmol/L (3.5-5.1); Protein, Total 7.7 g/dL (6.4-8.2); Sodium Level 140 mmol/L (136-145)
--- NOTE | 2019-12-12 11:07 | ED.DEP ---
ED Disposition - Plan for ED Patient: Disposition: Home or Assisted Living Instructions: ED Gastritis Prescriptions: Ondansetron [Zofran Odt] 4 mg PO Q8H PRN PRN #10 tab PRN Reason: Nausea Prescription Printed Referrals: Laura Pete MD [STAFF PHYSICIAN] - 1 Week if not improving Additional Instructions: Abdominal pain is most likely gastritis or inflammation of your stomach. Increase Prilosec to twice a day. Follow-up with your doctor if not improving. Return if increasing pain, fever black or bloody stool or throwing up blood.
[2019-12-12 11:30] VITALS: BP 119/62; PULSE 71; RESP 16; O2SAT 98
== END 2019-12-12 11:31 | disposition home or self-care (01) ==
PROVIDERS: Emergency Provider Emergency Medicine
DX: K29.00 Acute gastritis without bleeding (principal); Z90.49 Acquired absence of other specified parts of digestive tract; Z72.0 Tobacco use
CPT/HCPCS: 80053; 83690; 85025; 96361; 96374; 99284; J7030; A4216; J2405

== ENCOUNTER 2020-01-28 09:46 | Emergency (ER) | payer MEDICAID, SELFPAY ==
[2020-01-28 09:47] VITALS: BP 136/54; PULSE 86; RESP 16; TEMP 35.8; O2SAT 98; BMI 39.3
[2020-01-28 10:22] LABS: Red Blood Cells-Urine 0 SEEN /hpf (0-5)
[2020-01-28 10:25] LABS: Color, Urine Yellow (Yellow); Glucose, Dipstick Normal (Normal); Leukocyte Esterase-Dipstick 100 /ul (Negative); Nitrite-Dipstick Negative (Negative); Occult Blood-Urine 25 /ul (Negative); Protein-Dipstick 30 mg/dl (Negative); Specific Gravity, Urine 1.015 (1.002-1.030); Urine Clarity Sl. Cloudy (Clear); Urine Urobilinogen 8 mg/dl (Normal)
[2020-01-28 10:26] LABS: Internal QC Validated? YES +Cl - CLEAR BKGD; Pregnancy, Urine Negative Negative
[2020-01-28 10:27] LABS: Urine Bilirubin Dipstick 1 mg/dL (Negative)
[2020-01-28 10:29] LABS: Ketone-Dipstick 150 mg/dl (Negative)
--- NOTE | 2020-01-28 10:34 | US_ITS ---
STUDY: ABDOMINAL ULTRASOUND - RIGHT UPPER QUADRANT REASON FOR VISIT: Female, 29 years old RUQ PAIN CHOLECYSTECTOMY 10YRS AGO TECHNIQUE: Ultrasound evaluation of the right upper quadrant was performed with real-time and static silva-scale imaging. TECHNICAL QUALITY: Adequate. COMPARISON: None. FINDINGS: Liver: The liver measures 16.2 cm. There is normal echogenicity of the liver. The bile ducts are within normal limits. There is hepatic color flow. The direction of portal flow is hepatopetal. There is no demonstrated mass lesion. Gallbladder: The patient is status post cholecystectomy. There are 2 echogenic foci with posterior acoustical shadowing in the gallbladder fossa. The largest measures 1.6 cm by 0.9 cm x 0.7 cm. A small fluid collection is seen at this site. Residual gallstone should be ruled out. Common Bile Duct (C.B.D.): The common bile duct measures 1.9 mm. Pancreas: Normal size of the head, body and tail of the pancreas. There is normal echogenicity of the pancreas. There is no demonstrated pancreatic mass or cyst. Right Kidney: Normal size of the right kidney. The right kidney measures 10.6 cm x 6.4 cm x 3.9 cm. Normal renal cortex. The right cortex measures 1.5 cm. There is no demonstrated renal mass or cyst. There is no right hydronephrosis. US/Gallbladder IMPRESSION: The patient is status post cholecystectomy with possible residual gallstones as described. Electronically Signed: Jus Rico, at 12:20 EDT , Service support ,
[2020-01-28 10:49] LABS: Bacteria 2+ /hpf (None Seen); Mucous, Urine 2+ /hpf (<or=2+); Squamous Epithelial Cells - UA 5-10 SEEN /hpf (5-10); White Blood Cells 0-5 SEEN /hpf (0-5)
[2020-01-28] MEDS: 0.9% Normal Saline 1,000 ML 1000 ML IV (11:08)
[2020-01-28] MEDS: Ondansetron 4 MG/2 ML Vial IV (11:08)
[2020-01-28 11:17] LABS: Absolute Lymphocyte Count 0.93 X10^3/uL (0.83-4.51); Basophil# 0.02 X10^3/uL; Basophil% 0.2 % (0-1); Eosinophil# 0.03 X10^3/uL; Eosinophils% 0.2 % (0-5); Hematocrit 45.1 % (37-47); Lymphocyte # 0.93 X10^3/ul (4.0); Lymphocyte % 7.5 % (19-41); Mean Corp Hgb Conc 33.3 g/dL (32-36); Mean Corpuscular Hgb 28.2 pg (27.0-32.0); Mean Corpuscular Volume 84.9 fL (81-99); Mean Platelet Vol. 9.5 fl (6.2-12.0); Monocyte# 0.46 X10^3/uL; Monocyte% 3.7 % (0-10); NRBC Flagged by Analyzer 0 % (0-5); Neutrophil # 10.96 X10^3/uL (2.7-7.7); Platelet Count 254 K/mm3 (150-450); RBC Distribution Width CV 13.2 % (11.6-14.6); Red Blood Count 5.31 M/mm3 (4.2-5.4); White Blood Count 12.5 K/mm3 (4.4-11.0)
[2020-01-28 11:30] LABS: AST(SGOT) 14 U/L (15-37); Alanine Aminotransfer ALT/SGPT 22 U/L (13-56); Albumin, Serum 3.7 g/dL (3.2-5.0); Alkaline Phosphatase 103 U/L (45-117); Anion Gap 10 (5-15); BUN 11 mg/dL (7-18); BUN/Creat Ratio 13.8 RATIO (10-20); Bilirubin, Direct 0.17 mg/dL (0.00-0.30); Calcium,Total 9.1 mg/dL (8.5-10.1); Chloride 108 mmol/L (98-107); EST Glomerular Filtration Rate 90 mL/min (>60); Est Glom Filt Rate - Afr Amer 109 mL/min (>60); Estimated Creatinine Clearance 82.06 ml/min; Globulin 4.2 g/dL (2.2-4.2); Glucose 109 mg/dL (74-106); Lipase 80 U/L (73-393); Potassium 3.5 mmol/L (3.5-5.1); Protein, Total 7.9 g/dL (6.4-8.2); Sodium Level 139 mmol/L (136-145)
[2020-01-28 11:47] VITALS: BP 134/72; PULSE 77; RESP 18; O2SAT 98
[2020-01-28 13:00] VITALS: BP 135/82; PULSE 75; RESP 18; O2SAT 98
[2020-01-28] MEDS: Morphine 4 MG/ML Syringe IV (13:13)
[2020-01-28] MEDS: 0.9% Normal Saline 1,000 ML 999 ML IV (13:13)
[2020-01-28] MEDS: morphine 8 MG/ML Syringe 6 MG IV ×2 (13:42→16:24)
--- NOTE | 2020-01-28 14:58 | NURSING ---
[facility] 294 NURSE TO NURSE [phone]
[2020-01-28 15:00] VITALS: BP 139/81; PULSE 65; RESP 18; TEMP 36.7; O2SAT 99
--- NOTE | 2020-01-28 15:13 | ED.VIS.GEN ---
History of Present Illness Chief Complaint: Abd Pain Informant: Patient Onset: Yesterday Context: Gradual Onset Timing: Continuous, Waxes and wanes Narrative: Is a 29-year-old female with history of ectomy 10 years ago in [place]. She is presenting with recurrent episodes of upper abdominal pain. She states she been having intermittent episodes since September. Patient states she is been to multiple ERs for these episodes of pain including [place] as well as our emergency room. Patient followed up with her PCP 1 month ago but was never referred to a GI specialist or anyone following her PCP evaluation. She has been taking Bentyl and prednisone which intermittently helps with her symptoms. Patient states that she gets episodes of abdominal pains in her abdomen with associated sweating that last for couple days. Intermixed with this she will have sharp pain to go into her back. She is been having this episode since 2 days ago. She states it is worse with eating. Patient know she is had a small bits of diarrhea today. Patient states she gets 1-2 episodes like this a month. Patient denies any other complaints at this time. She states she is not concerned for . She denies any illicit drug use. Patient states she does vape and intermittently uses CBD oil. She denies any alcohol use. She denies any other complaints at this time. Past Medical History - Allergies and Home Meds Allergies/Adverse Reactions: Allergies No Known Allergies Allergy (Verified 01/28/20 09:47) Primary Care Physician: Laura Pete MD [Primary Care Provider] - Past Medical History: - - Depression, gastritis Surgical History: cholecystectomy Smoking Status: Never smoker Alcohol: None Drugs: - - CBD Review of Systems General: Denies: Chills, Fever, Sweats Eyes: Denies: Visual changes - bilaterally, Diplopia ENT: Denies: Rhinorrhea, Sore throat Cardiovascular: Denies: Chest pain, Palpitations Respiratory: Denies: Dyspnea, Cough, Dyspnea on exertion Gastrointestinal: Reports: Abdominal pain, Nausea, Vomiting. Denies: Diarrhea, Melena, Hematochezia Genitourinary: Denies: Dysuria, Hematuria, Frequency Musculoskeletal: Denies: Back pain, Extremity Pain Skin: Denies: Rash, Wounds Neurological: Denies: Headache, Weakness, Numbness Physical Exam Vital Signs/Narrative: Vital Signs Temp Pulse Resp BP Pulse Ox 01/28/20 15:00 98.0 F 65 18 139/81 H 99 01/28/20 13:00 75 18 135/82 H 98 01/28/20 11:47 77 18 134/72 H 98 Inital Vital Signs reviewed: Yes General: Well nourished, Well developed, Obese, No Acute Distress Head: Normocephalic, Atraumatic Eyes: Perrl, EOMI ENT: Moist mucous membranes, No rhinorrhea Neck: Supple, Nontender Cardiovascular: Regular rate, Regular rhythm, No murmurs Respiratory: No distress, CTA bilaterally, Chest nontender Abdomen: Soft, Nondistended, Normal bowel sounds, Tender - Epigastric region, Hypoactive bowel sounds. Negative for: Guarding, Rebound tenderness Back: Nontender, Normal Inspection Extremities: Nontender, No edema Skin: Normal color, No rash Neurological: Alert, Oriented x3, Cranial nerves II-XII grossly intact, Normal Strength, Normal Sensation Psychological: Normal affect, Normal Mood Diagnostic/Tx/Re-eval Clinical Impression(s) from Imaging Studies Gallbladder Ultrasound 01/28/20 10:34 IMPRESSION: The patient is status post cholecystectomy with possible residual gallstones as described. Electronically Signed: Jus Jacky, at 12:20 EDT , Service support , Laboratory Data 01/28/20 01/28/20 01/28/20 10:21 10:21 11:02 WBC 12.5 H RBC 5.31 Hgb 15.0 Hct 45.1 MCV 84.9 MCH 28.2 MCHC 33.3 RDW Std Deviation 41.0 RDW Coeff of Sandra 13.2 Plt Count 254 MPV 9.5 Immature Gran % (Auto) 0.400 Neut % (Auto) 88.0 H Lymph % (Auto) 7.5 L Irion % (Auto) 3.7 Eos % (Auto) 0.2 Baso % (Auto) 0.2 Absolute Neuts (auto) 11.0 H Absolute Lymphs (auto) 0.93 Nucleated RBC % 0 Sodium Potassium Chloride Carbon Dioxide Anion Gap BUN Creatinine Estim Creat Clear Calc Est GFR (MDRD) Af Amer Est GFR (MDRD) Non-Af BUN/Creatinine Ratio Glucose Calcium Total Bilirubin Direct Bilirubin AST ALT Alkaline Phosphatase Total Protein Albumin Globulin Lipase Urine Color Yellow Urine Clarity Sl. Cloudy Urine pH 7.0 Ur Specific [place] 1.015 Urine Protein 30 H Urine Glucose (UA) Normal Urine Ketones 150 H Urine Occult Blood 25 H Urine Nitrite Negative Urine Bilirubin 1 H Urine Urobilinogen 8 H Ur Leukocyte Esterase 100 H Urine RBC 0 SEEN Urine WBC 0-5 SEEN Ur Squamous Epith Cells 5-10 SEEN Urine Bacteria 2+ Urine Mucus 2+ Urine Test Negative 01/28/20 11:02 WBC RBC Hgb Hct MCV MCH MCHC RDW Std Deviation RDW Coeff of Sandra Plt Count MPV Immature Gran % (Auto) Neut % (Auto) Lymph % (Auto) [place] % (Auto) Eos % (Auto) Baso % (Auto) Absolute Neuts (auto) Absolute Lymphs (auto) Nucleated RBC % Sodium 139 Potassium 3.5 Chloride 108 H Carbon Dioxide 21.0 Anion Gap 10 BUN 11 Creatinine 0.80 Estim Creat Clear Calc 82.06 Est GFR (MDRD) Af Amer 109 Est GFR (MDRD) Non-Af 90 BUN/Creatinine Ratio 13.8 Glucose 109 H Calcium 9.1 Total Bilirubin 0.60 Direct Bilirubin 0.17 AST 14 L ALT 22 Alkaline Phosphatase 103 Total Protein 7.9 Albumin 3.7 Globulin 4.2 Lipase 80 Urine Color Urine Clarity Urine pH Ur Specific [place] Urine Protein Urine Glucose (UA) Urine Ketones Urine Occult Blood Urine Nitrite Urine Bilirubin Urine Urobilinogen Ur Leukocyte Esterase Urine RBC Urine WBC Ur Squamous Epith Cells Urine Bacteria Urine Mucus Urine Test - Medical Decision Making Is evaluated for recurrent episodes of epigastric abdominal pain. Patient appears to be in significant discomfort on exam however her abdominal exam is a benign. Whittaker sign but she does localize her pain to the epigastric region. Patient's lab work is significant only for a mild leukocytosis. Patient is initially given Zofran and fluids with no reported relief of her symptoms. She is then given multiple doses of morphine for pain control with minimal effect. I did try 1 mg of IV Haldol with only minimal relief of her symptoms. Ultrasound showed concern for retained common bile duct stones. She does not have lab work consistent with choledocholithiasis however she seems to be symptomatic from it. She does have some mild dilation of her common bile duct. I did discuss the case with surgery, Dr. Bedoya, who does not feel comfortable taking care of this case here as he think she needs a GI specialist or hepatobiliary specialist as well. Patient states she like to be transferred to the [place] area [facility]. Patient is discussed with medicine who accepts the patient, Dr. Cervantes. She did discuss the case with GI prior to excepting the patient. In addition I think patient require admission for intractable pain. Patient is agreeable with plan of care. She is hemodynamically stable in the emergency room. Patient is given another 6 mg of IV morphine just prior to transfer. ED Disposition - Plan for ED Patient: Disposition: [facility] Diagnosis: Hx of cholecystectomy, Leukocytosis, Intractable epigastric abdominal pain, Retained gallstones following laparoscopic cholecystectomy Referrals: Laura Pete MD [Primary Care Provider] -
[2020-01-28] MEDS: Haloperidol Lactate 5 MG/ML Vial 1 MG IV (15:37)
== END 2020-01-28 16:26 | disposition short-term general hospital (02) ==
PROVIDERS: Emergency Provider Emergency Medicine; PCP Internal Medicine
DX: K91.86 Retained cholelithiasis following cholecystectomy (principal); D72.829 Elevated white blood cell count, unspecified; E66.9 Obesity, unspecified; Z90.49 Acquired absence of other specified parts of digestive tract
CPT/HCPCS: 76705; 80048; 80076; 81001; 81025; 83690; 85025; 87086; 87088; 96361; 96374; 96375; 96376; 99283; J7030; A4216; J2405

== ENCOUNTER 2020-02-21 10:56 | Emergency (ER) | payer MEDICAID, SELFPAY ==
[2020-02-21 10:57] VITALS: BP 137/73; PULSE 66; RESP 15; TEMP 36; O2SAT 98; BMI 38.2
--- NOTE | 2020-02-21 11:39 | CT_ITS ---
STUDY: CT ABDOMEN AND PELVIS WITH CONTRAST REASON FOR EXAM: Female, 29 years old. PT STATED UPPER ABDOMINAL PAIN, HX OF POSSIBLE RESIDUAL GALL STONE, TWIN PERFORMED IN [place] 10 YEARS AGO. RADIATION DOSAGE (If Supplied By Facility): CTDIvol = ( 16.95 ) mGy, DLP = ( 1084.67 ) mGycm TECHNIQUE: Transaxial images were obtained from the dome of the diaphragm to the symphysis pubis with oral contrast. Oral and amp; IV GASTROGRAFIN and amp; 100ML ISOVUE 370 was administered. Sagittal and coronal images were reconstructed. Individualized dose optimization techniques were used for this CT. COMPARISON: 10/19/2019 FINDINGS: The visualized lung bases are unremarkable. The visualized portions of the heart are within normal limits. Normal liver. There are surgical clips in the gallbladder fossa consistent with a prior cholecystectomy. Normal spleen. Normal pancreas. Normal bilateral adrenal glands. Normal right kidney. Normal left kidney. Normal visualized stomach. Normal small intestine. Diffuse submucosal thickening in the majority of the colon. This suggests a diffuse colitis. There is no perforation or abscess noted. No significant pericolonic inflammatory stranding noted. The appendix is visualized and appears normal. Appendix best seen on coronal recon images 54 through 59 Normal abdominal aorta. Normal inferior vena cava. Normal retroperitoneum. Uterus is mildly enlarged and contains an IUD. There is a complex right ovarian cyst measuring 3.6 x 3.0 cm Normal abdominal wall. Normal osseous structures. CT/Abdomen/Pelvis WITH Contrast IMPRESSION: Diffuse submucosal thickening in the majority of the colon suggests a diffuse colitis. No perforation or abscess is noted. No suspicious solid organ abnormality, previous cholecystectomy IUD noted in the uterus Complex 3.6 x 3.0 right adnexal cyst Normal appendix visualized Electronically Signed: Norm Pastor MD at 13:39 EDT , Service support ,
--- NOTE | 2020-02-21 11:45 | ED.DCSUM_ITS ---
- ER Visit Summary Date of Service: 02/21/20 Chief Complaint: Abdominal pain History of Present Illness: The patient is a 29 F who presents with abdominal pain that has been getting worse over the past 3 days. Patient states her pain is sharp. Patient states the pain is over the epigastric and right upper quadrants. Patient states the pain radiates to her back on the right side. Patient states nothing makes her pain better or worse. Patient admits to some nausea and vomiting. Patient denies any hematemesis or coffee-ground emesis. Patient denies any diarrhea, melena, or hematochezia. Patient denies any dysuria or hematuria. Patient states she had a similar episode at the end of December and was transferred to [facility]. Patient states she was told there was only 1 stone and that it was small and should pass without intervention. Physical Examination: Vital signs are stable. Patient is afebrile. Patient is in no acute distress. Oral mucosa is pink and moist. Neck is supple. Trachea is midline. There is no JVD. Heart was regular rate and rhythm. Lungs are clear and equal bilaterally. Abdomen is soft. Bowel sounds are normal. There is epigastric tenderness. There is minimal right upper quadrant tenderness. There is no rebound or guarding noted. Cranial nerves II through XII are intact. There are no focal motor or sensory deficits noted. Extremities are intact. There is no calf tenderness or edema. Test Results: CBC shows a mild leukocytosis of 15.2. Comprehensive metabolic profile was within normal limits. Lipase was normal. Serum hCG was negative. CT scan of the abdomen and pelvis was obtained. There is diffuse thickening in the majority of the colon suggesting diffuse colitis. There is no perforation or abscess. There are small calcifications in the common bile duct. When compared to previous study the amount of stones and hyperdensity within the common bile duct has diminished. These are not likely to be causing any obstruction. This was interpreted by the radiologist and reviewed by myself. Emergency Department Course and Treatment: Patient was given IV fluids, morphine, and Zofran here. Patient was feeling better on reevaluation. Patient was given her first dose of Cipro and Flagyl here. Patient was given prescriptions for Cipro and Flagyl. Patient was instructed to avoid alcohol while taking Flagyl. Patient was instructed to start with a liquid diet and advance as tolerated. Patient was instructed to return if worse in any way. Patient understood and was agreeable with the plan. All questions were answered. Disposition: Discharge home Impression: Colitis This note was generated with [employer] dictation software. It may contain incorrect words, spelling, and punctuation that were not noted in review of the chart prior to signing ED Disposition - Plan for ED Patient: Disposition: Home or Assisted Living Diagnosis: Colitis Instructions: ED Gastroenteritis Bacterial Prescriptions: Ciprofloxacin [Cipro] 500 mg PO BID #20 tab Transmission Status: Received by [facility] metroNIDAZOLE [Flagyl] 500 mg PO Q6H #40 tab Transmission Status: Received by [facility] Ondansetron [Zofran Odt] 4 mg PO Q8H PRN PRN #10 tab PRN Reason: Nausea Transmission Status: Received by [facility] Referrals: Laura Pete MD [Primary Care Provider] - 5-7 Days Additional Instructions: Do not drink alcohol while taking Flagyl.
[2020-02-21] MEDS: 0.9% Normal Saline 1,000 ML 1000 ML IV (12:21)
[2020-02-21] MEDS: Morphine 4 MG/ML Syringe IV (12:21)
[2020-02-21] MEDS: Ondansetron 4 MG/2 ML Vial IV (12:21)
[2020-02-21 12:23] LABS: Absolute Lymphocyte Count 1.45 X10^3/uL (0.83-4.51); Absolute Neutrophil Count 12.9 X10^3/uL (2.0-7.7); Basophil# 0.01 X10^3/uL; Basophil% 0.1 % (0-1); Hematocrit 45.4 % (37-47); Hemoglobin 15.4 g/dL (12.0-15.0); Lymphocyte # 1.45 X10^3/ul (4.0); Lymphocyte % 9.6 % (19-41); Mean Corp Hgb Conc 33.9 g/dL (32-36); Mean Corpuscular Hgb 28.8 pg (27.0-32.0); Mean Corpuscular Volume 84.9 fL (81-99); Mean Platelet Vol. 10.2 fl (6.2-12.0); Monocyte# 0.72 X10^3/uL; Monocyte% 4.8 % (0-10); NRBC Flagged by Analyzer 0 % (0-5); Neutrophil # 12.85 X10^3/uL (2.7-7.7); Neutrophil % 84.7 % (47-70); Platelet Count 248 K/mm3 (150-450); RBC Distribution Width CV 12.8 % (11.6-14.6); RBC Distribution Width SD 39.2 fl (35.1-43.9); Red Blood Count 5.35 M/mm3 (4.2-5.4); White Blood Count 15.2 K/mm3 (4.4-11.0)
[2020-02-21 12:41] LABS: Internal QC Validated? YES +Cl - CLEAR BKGD; Pregnancy, Serum, hCG Quali. NEGATIVE Negative
[2020-02-21 12:58] LABS: ALB/GLOB Ratio 0.9 RATIO (0.9-2.4); AST(SGOT) 18 U/L (15-37); Alanine Aminotransfer ALT/SGPT 31 U/L (13-56); Albumin, Serum 3.9 g/dL (3.2-5.0); Alkaline Phosphatase 112 U/L (45-117); Anion Gap 6 (5-15); BUN 8 mg/dL (7-18); BUN/Creat Ratio 9.9 RATIO (10-20); Calcium,Total 9.3 mg/dL (8.5-10.1); Chloride 105 mmol/L (98-107); Creatinine, Serum 0.81 mg/dL (0.55-1.02); EST Glomerular Filtration Rate 89 mL/min (>60); Est Glom Filt Rate - Afr Amer 108 mL/min (>60); Estimated Creatinine Clearance 81.05 ml/min; Globulin 4.2 g/dL (2.2-4.2); Glucose 96 mg/dL (74-106); Lipase 67 U/L (73-393); Potassium 3.6 mmol/L (3.5-5.1); Protein, Total 8.1 g/dL (6.4-8.2); Sodium Level 137 mmol/L (136-145)
[2020-02-21 13:01] VITALS: RESP 18
== END 2020-02-21 14:32 | disposition home or self-care (01) ==
PROVIDERS: Emergency Provider Emergency Medicine; PCP Internal Medicine
DX: K52.9 Noninfective gastroenteritis and colitis, unspecified (principal); E66.9 Obesity, unspecified; Z68.38 Body mass index [BMI] 38.0-38.9, adult; Z72.0 Tobacco use
CPT/HCPCS: 74177; 80053; 83690; 84703; 85025; 96361; 96374; 96375; 99285; J7030; Q9967; A4216; J2405

== ENCOUNTER → 2020-10-15 | Outpatient (CLI) | payer MEDICAID, SELFPAY ==
[2020-10-17 03:07] LABS: Chlamydia By Nucleic Acid AMP Negative (Negative)
[2020-10-17 13:42] LABS: Gonococcus By Nucleic Acid AMP Negative (Negative)
[2020-10-17 17:07] LABS: HPV Reflexed? NOT INDICATED
== END | disposition home or self-care (01) ==
LOC: LABSPEC 10:25
PROVIDERS: PCP Internal Medicine; Visit Provider Student in an Organized Health Care Education/Training Program
DX: Z12.4 Encounter for screening for malignant neoplasm of cervix (principal); Z11.3 Encounter for screening for infections with a predominantly sexual mode of transmission; Z32.01 Encounter for pregnancy test, result positive
CPT/HCPCS: 87491; 87591; 88175; G0145

== ENCOUNTER → 2020-10-22 15:06 | Outpatient (CLI) | payer MEDICAID, SELFPAY ==
[2020-10-22 17:31] LABS: Color, Urine Yellow (Yellow); Glucose, Dipstick Normal (Normal); Ketone-Dipstick 15 mg/dl (Negative); Leukocyte Esterase-Dipstick 25 /ul (Negative); Nitrite-Dipstick Negative (Negative); Occult Blood-Urine Negative /ul (Negative); Protein-Dipstick 15 mg/dl (Negative); Specific Gravity, Urine 1.015 (1.002-1.030); Urine Bilirubin Dipstick Negative (Negative); Urine Clarity Clear (Clear); Urine Urobilinogen Normal (Normal); Urine pH 6.5 (5.0 - 8.0)
[2020-10-22 17:43] LABS: Absolute Lymphocyte Count 2.13 X10^3/uL (0.83-4.51); Absolute Neutrophil Count 7.5 X10^3/uL (2.0-7.7); Basophil# 0.01 X10^3/uL; Basophil% 0.1 % (0-1); Eosinophil# 0.14 X10^3/uL; Eosinophils% 1.4 % (0-5); Hematocrit 42.8 % (37-47); Hemoglobin 14.2 g/dL (12.0-15.0); Lymphocyte # 2.13 X10^3/ul (4.0); Lymphocyte % 20.6 % (19-41); Mean Corp Hgb Conc 33.2 g/dL (32-36); Mean Corpuscular Hgb 28.2 pg (27.0-32.0); Mean Corpuscular Volume 84.9 fL (81-99); Mean Platelet Vol. 11.2 fl (6.2-12.0); Monocyte# 0.53 X10^3/uL; Monocyte% 5.1 % (0-10); NRBC Flagged by Analyzer 0 % (0-5); Neutrophil % 72.5 % (47-70); Platelet Count 233 K/mm3 (150-450); RBC Distribution Width SD 40.2 fl (35.1-43.9); Red Blood Count 5.04 M/mm3 (4.2-5.4); White Blood Count 10.3 K/mm3 (4.4-11.0)
[2020-10-22 17:47] LABS: Thyroid Stim Hormone (TSH) 1.55 uIU/mL (0.358-3.74)
[2020-10-23 08:58] LABS: HIV - WCH Non-Reactive (Nonreactive); Hepatitis B Surface Antigen Non-Reactive (Nonreactive); Hepatitis C Antibody Non-Reactive (Nonreactive); Rubella IgG Reactive (Nonreactive); Syphilis Antibodies Non-reactive
== END ==
PROVIDERS: PCP Internal Medicine; Visit Provider Obstetrics & Gynecology
DX: Z34.81 Encounter for supervision of other normal pregnancy, first trimester (principal)
CPT/HCPCS: 36415; 81002; 84443; 85025; 86703; 86762; 86780; 86803; 87340

== ENCOUNTER → 2021-03-11 14:09 | Outpatient (CLI) | payer MEDICAID, SELFPAY ==
[2021-03-11 15:02] LABS: Hematocrit 35.8 % (37-47); Hemoglobin 11.8 g/dL (12.0-15.0); Mean Corpuscular Hgb 29.6 pg (27.0-32.0); Mean Corpuscular Volume 89.7 fL (81-99); Mean Platelet Vol. 9.8 fl (6.2-12.0); Platelet Count 181 K/mm3 (150-450); RBC Distribution Width CV 12.5 % (11.6-14.6); Red Blood Count 3.99 M/mm3 (4.2-5.4); White Blood Count 13.2 K/mm3 (4.4-11.0)
[2021-03-11 15:08] LABS: Glucose Challenge Gest 1H 50g 87 mg/dL (70-140)
== END ==
PROVIDERS: PCP Internal Medicine; Visit Provider Obstetrics & Gynecology
DX: O36.0130 Maternal care for anti-D [Rh] antibodies, third trimester, not applicable or unspecified (principal); Z3A.00 Weeks of gestation of pregnancy not specified
CPT/HCPCS: 36415; 82950; 85027; 86850

== ENCOUNTER 2021-04-08 14:38 | Emergency (ER) | payer MEDICAID, SELFPAY | END 2021-04-08 15:55 | disposition left against medical advice (07) | LOC: ED 15:54 | DX: R69 Illness, unspecified (principal); Z53.21 Procedure and treatment not carried out due to patient leaving prior to being seen by health care provider ==

== ENCOUNTER 2021-04-08 14:47 | Outpatient (CLI) | payer MEDICAID, SELFPAY ==
[2021-04-08 15:08] VITALS: BP 119/70; PULSE 86; TEMP 36.3
[2021-04-08 15:09] VITALS: BMI 30.7
[2021-04-08] MEDS: Fleet Enema 1 ML RC (15:36)
--- NOTE | 2021-04-08 20:23 | OB.TRI.NOTE ---
HPI - General HPI Narrative STEPHIE RODRIGES, is a 30 F who presents to labor and delivery at 32 weeks and 3 days gestation with severe constipation. She has not had a bowel movement for more than 4 days. She has tried several products at home including MiraLAX and a suppository which did not help. She so uncomfortable she decided to come to labor and delivery. PFSH PFSH Home Medications [id number] [] 1 tab PO DAILY 04/08/21 [History Last Taken Unknown] Allergy/AdvReac Type Severity Reaction Status Date / Time No Known Allergies Allergy Verified 04/08/21 15:10 Social History Smoking Status: Light Smoker (<10/day) History Elective abortions Hx Para 2 Spontaneous abortions Hx # Term Pregnancies Ectopic pregnancies Hx # Pregnancies Multiple births # of living children NST FHR Rate Baby A NST Reactive:: Yes FHR Category:: Category I Assessment & Plan (1) Constipation during in third trimester: PLAN: 32-week 3-day gestation with severe constipation. Relieved with fleets enema. Reactive nonstress test. No contractions. Will discharge to home with routine instructions. Instructed patient to use a stool softener 2-3 times daily to avoid constipation as the progresses.
== END 2021-04-08 18:11 | disposition home or self-care (01) ==
LOC: WPOUT 14:56 → WP 14:57
PROVIDERS: Visit Provider Obstetrics & Gynecology
DX: O99.613 Diseases of the digestive system complicating pregnancy, third trimester (principal); K59.00 Constipation, unspecified; O99.333 Smoking (tobacco) complicating pregnancy, third trimester; F17.200 Nicotine dependence, unspecified, uncomplicated; Z3A.32 32 weeks gestation of pregnancy
CPT/HCPCS: 59025; 59050; 99218; G0378

== ENCOUNTER → 2021-05-08 | Outpatient (CLI) | payer MEDICAID, SELFPAY | END | disposition home or self-care (01) | LOC: LABSPEC 16:04 | PROVIDERS: Visit Provider Student in an Organized Health Care Education/Training Program | DX: Z36.85 Encounter for antenatal screening for Streptococcus B (principal) | CPT/HCPCS: 87081 ==

== ENCOUNTER 2021-05-30 19:25 | Outpatient (CLI) | payer MEDICAID, SELFPAY ==
[2021-05-30 19:37] VITALS: BP 123/74; PULSE 99; TEMP 36.7; O2SAT 96; O2SAT 97
[2021-05-30 19:43] VITALS: BMI 32.4
[2021-05-30 20:21] LABS: ROM Internal Control Test YES-OK TO RESULT pt. (Internal QC)
[2021-05-30 20:22] LABS: ROM Patient Test Negative (Negative)
--- NOTE | 2021-05-30 22:50 | OB.TRI.NOTE ---
HPI - General HPI Narrative STEPHIE RODRIGES, is a 30 F who presents with leakage of fluid PFSH PFSH Home Medications [id number] [] 1 tab PO DAILY 04/08/21 [History Last Taken 05/30/21 15:00] Allergy/AdvReac Type Severity Reaction Status Date / Time No Known Allergies Allergy Verified 05/30/21 19:44 Social History Smoking Status: Light Smoker (<10/day) History Elective abortions Hx Para 2 Spontaneous abortions Hx # Term Pregnancies Ectopic pregnancies Hx # Pregnancies Multiple births # of living children NST FHR Rate Baby A Baseline: 120 Variability:: Moderate Accelerations:: 15 x 15 Decelerations:: None NST Reactive:: Yes Uterine Activity:: Few contractions Assessment & Plan (1) : PLAN: Patient arrives with leakage of fluid. ROM negative. Cervical exam unchanged. Reassuring, okay to discharge home and follow-up at scheduled appointments
== END 2021-05-30 20:45 | disposition home or self-care (01) ==
LOC: WPOUT 19:33 → WP 19:33
PROVIDERS: Visit Provider Obstetrics & Gynecology
DX: O42.90 Premature rupture of membranes, unspecified as to length of time between rupture and onset of labor, unspecified weeks of gestation (principal); O99.330 Smoking (tobacco) complicating pregnancy, unspecified trimester; F17.200 Nicotine dependence, unspecified, uncomplicated; Z3A.00 Weeks of gestation of pregnancy not specified
CPT/HCPCS: 59025; 59050; 84112; 99218; G0378

== ENCOUNTER 2021-06-02 13:28 | Outpatient (CLI) | payer MEDICAID, SELFPAY ==
[2021-06-02 13:38] VITALS: BP 124/83; PULSE 106
[2021-06-02 13:39] VITALS: BMI 34.0
[2021-06-02 13:41] VITALS: TEMP 36.8
--- NOTE | 2021-06-02 22:56 | OB.TRI.NOTE ---
HPI - General HPI Narrative STEPHEI RODRIGES, is a 30 F who presents at 40 3/7wga with c/o decreased movement at term. PFSH PFSH Medical History (Updated 06/19/21 @ 09:[address] Umu Salamanca MD) Cholecystectomy planned Home Medications [id number] [] 1 tab PO DAILY 04/08/21 [History Last Taken 05/30/21 15:00] Allergy/AdvReac Type Severity Reaction Status Date / Time No Known Allergies Allergy Verified 06/05/21 07:40 Social History Smoking Status: Former smoker History Elective abortions Hx Para 3 Spontaneous abortions Hx # Term Pregnancies Ectopic pregnancies Hx # Pregnancies Multiple births # of living children NST FHR Rate Baby A Baseline: 140 Variability:: Moderate Accelerations:: 15 x 15 Decelerations:: Variable NST Reactive:: Yes FHR Category:: Category I and Category II Uterine Activity:: irritability Assessment & Plan (1) : QUALIFIERS: Weeks of gestation: 40 weeks Qualified Code(s): Z3A.40 - 40 weeks gestation of PLAN: d/c home
== END 2021-06-02 14:55 | disposition home or self-care (01) ==
LOC: WPOUT 13:29 → WP 13:30
PROVIDERS: Visit Provider Obstetrics & Gynecology
DX: O36.8190 Decreased fetal movements, unspecified trimester, not applicable or unspecified (principal); Z3A.00 Weeks of gestation of pregnancy not specified; Z87.891 Personal history of nicotine dependence
CPT/HCPCS: 59025; 59050; 99218; G0378

== ENCOUNTER 2021-06-05 07:05 | Inpatient (IN) | payer MEDICAID, SELFPAY ==
[2021-06-05] VITALS (42 sets, daily range): BP systolic 106–183; BP diastolic 53–120; PULSE 68–109; RESP 18; TEMP 35.7–36.9; O2SAT 89–100; BMI 34.9
[2021-06-05] MEDS: Lactated Ringers 1,000 ML 200 ML IV ×2 (07:35→13:05)
--- NOTE | 2021-06-05 07:47 | PCM.HP.BLA ---
History and Physical Date of Admission: 06/05/21 HPI: 30 yo at 40/6w, CECILIA 05/30/21 by LMP, admitted for term induction of labor. Denies regular contractions, leaking of fluid, vaginal bleeding. Denies headache, vision changes, chest pain, shortness of breath, nausea or vomiting, diarrhea/constipation, fevers or chills. Complicated by: obesity OB HISTORY: 1 08/22/12 Male 39 wks 22 hrs Vag 2 05/22/14 Male 40 wks 1 hrs Vag 3 10/04/15 Female 40 wks 2 hrs Vag Medical history: denies Surgical history: cholecystectomy Allergies: No known drug allergies Family history: Denies history of blood clots or bleeding disorders Medications: vitamin Social: former smoker. Denies drug/alcohol use Review of systems: Negative otherwise noted above Physical exam: Vital signs: Pending General: No acute distress HEENT: Normocephalic atraumatic, PERRLA Cardiorespiratory: No increased effort, no use of accessory muscles, regular rate Abdomen: Soft, nontender. Gravid Extremities: Minimal edema pedal Neuro: Cranial nerves II through XII grossly intact Musculoskeletal: Moving all extremities equally, normal strength FHR: 135/mod fiona/+accel/no decel [place]: irregular Labs: CBC, type and screen pending HIV negative hepatitis C/B negative/negative Syphilis nonreactive Gonorrhea/committee negative Rubella equivocal GBS neg 05/08 Assessment/plan: 30-year-old at 40/6 weeks admitted for term induction of labor. GBS negative. Plan for Pitocin and AROM this morning clear fluid.
[2021-06-05 07:51] LABS: Absolute Lymphocyte Count 2.84 X10^3/uL (0.83-4.51); Absolute Neutrophil Count 11.3 X10^3/uL (2.0-7.7); Basophil# 0.03 X10^3/uL; Basophil% 0.2 % (0-1); Eosinophil# 0.19 X10^3/uL; Eosinophils% 1.2 % (0-5); Hemoglobin 10.9 g/dL (12.0-15.0); Lymphocyte # 2.84 X10^3/ul (0.83-4.51); Lymphocyte % 18.2 % (19-41); Mean Corp Hgb Conc 34.1 g/dL (32-36); Mean Corpuscular Hgb 29.8 pg (27.0-32.0); Mean Corpuscular Volume 87.4 fL (81-99); Mean Platelet Vol. 9.7 fl (6.2-12.0); Monocyte# 1.01 X10^3/uL; Monocyte% 6.5 % (0-10); NRBC Flagged by Analyzer 0 % (0-5); Neutrophil # 11.33 X10^3/uL (2.7-7.7); Neutrophil % 72.4 % (47-70); Platelet Count 200 K/mm3 (150-450); RBC Distribution Width CV 12.9 % (11.6-14.6); RBC Distribution Width SD 41.1 fl (35.1-43.9); Red Blood Count 3.66 M/mm3 (4.2-5.4); White Blood Count 15.6 K/mm3 (4.4-11.0)
[2021-06-05] MEDS: Oxytocin 30 units/NS 500 ml 30 UNITS/500 ML IV.SOLN IV (08:08)
[2021-06-05] MEDS: Lactated Ringers 500 ML 999 ML IV (11:50)
[2021-06-05] MEDS: fentaNYL-bupivacaine (epidural) 100 ML BAG EPIDURAL (12:23)
--- NOTE | 2021-06-05 12:56 | PN_ITS ---
Progress Note Called for heart rate deceleration. Patient seen and examined. Cervical exam 7 cm. FSE had been placed by RN. heart rate now recovering in the 90s. Deceleration to a cecille of 40s. Recovered with Pitocin off, position change, oxygen on. heart rate now 115/moderate variability/+accel/no decel. [place] irregular. Plan to continue expectant management at this time. All questions answered. Patient and at bedside.
[2021-06-05] MEDS: Terbutaline 1 MG/ML Vial 0.25 MG SC (14:29)
[2021-06-05] MEDS: Oxytocin 30 units/NS 500 ml 30 UNITS/500 ML IV.SOLN 334 UNITS IV (14:52)
[2021-06-05] MEDS: miSOPROStol 200 MCG Tablet 1000 MCG RC (14:55)
--- NOTE | 2021-06-05 15:16 | EX.PCM.OBRPT ---
Maternal Data Information Final CECILIA: 05/30/21 Final CECILIA Source: LMP Vaginal Delivery Operative Information Date of Procedure: 06/05/21 Pre-Operative Diagnosis: Garrett intrauterine , prolonged heart rate deceleration Post-Operative Diagnosis: Garrett intrauterine , prolonged heart rate deceleration Surgery / Procedure Performed: Vacuum Assisted Vaginal Delivery Type of Anesthesia: Epidural Estimated Blood Loss: 500cc Findings Description of Procedure: 30-year-old admitted for term induction of labor with AROM and Pitocin. Patient progressed to approximately 7 cm at which time she had prolonged heart rate deceleration which recovered with position change, Pitocin was turned off, oxygen. status at that time was reassuring and continued throughout labor. Another deceleration occurred at which time terbutaline was given. Durbin catheter was placed in position changed again. Cervical exam at that time noted the cervix to be 10 cm dilated 100% effaced and 0 station. Patient was prepped to push. No contractions were noted due to recent terbutaline administration. Patient able to bring head down however heart rate decreased to the 50s. At that time discussion and decision for vacuum-assisted vaginal delivery was made. All risk, benefits, alternatives were discussed with the patient. Risks include but are not limited to: Risk of maternal laceration, cephalohematoma, subgaleal hemorrhage, scalp laceration. Patient aware and verbally consented all questions answered. Patient had adequate anesthesia, bladder was drained. head was at a +1 station. Vacuum placed 2 cm anterior to the posterior fontanelle. No maternal tissue noted within the vacuum cup. With maternal effort head was delivered, vacuum removed. No nuchal cord. Body delivered. Baby to maternal chest. Cord clamped and cut. Spontaneous delivery of placenta. Unable to send arterial blood gas, however venous blood gases were sent. No laceration. 1000 mcg Cytotec placed per rectum. Uterus firm with bimanual massage. Presentation: AMANDA Amniotic Membrane Rupture Type: Artificial Amniotic Fluid Description: Clear Cord Entanglement: None Infant A Gender: Male (1 minute): 8 (5 minute): 9
[2021-06-06] VITALS (13 sets, daily range): BP systolic 113–144; BP diastolic 57–81; PULSE 41–86; RESP 14–18; TEMP 36.2–36.6; O2SAT 82–99
[2021-06-06] MEDS: Ibuprofen 600 MG Tablet PO (04:28)
[2021-06-06 04:56] LABS: Hematocrit 30.2 % (37-47); Mean Corp Hgb Conc 33.1 g/dL (32-36); Mean Corpuscular Hgb 29.3 pg (27.0-32.0); Mean Corpuscular Volume 88.6 fL (81-99); Platelet Count 204 K/mm3 (150-450); RBC Distribution Width CV 12.7 % (11.6-14.6); RBC Distribution Width SD 40.9 fl (35.1-43.9); Red Blood Count 3.41 M/mm3 (4.2-5.4); White Blood Count 18.6 K/mm3 (4.4-11.0)
--- NOTE | 2021-06-06 07:41 | PN.OBGYN_ITS ---
Subjective Subjective day 1 status post vacuum-assisted vaginal delivery. Pain controlled. Has some cramping with breast-feeding. Breast-feeding going well. Lochia minimal. Objective Data Objective Data Vital Signs: Vital Signs Temp Pulse Resp BP Pulse Ox 97.5 F L 86 18 144/73 H 100 06/06/21 04:29 06/06/21 04:30 06/06/21 04:28 06/06/21 04:30 06/05/21 13:10 Oxygen Delivery Method Room Air Weight: 86.545 kg Body Mass Index (BMI) 34.9 Intake & Output: Intake and Output for Last 24 Hours 06/04/21 06/05/21 06/06/21 23:59 23:59 23:59 Intake Total 2342.89 / 2342.89 Output Total 800 / 800 200 / 200 Balance 1542.89 / 1542.89 -200 / -200 Lab / Micro Data Result Diagrams: 06/06/21 04:50 Labs: Laboratory Results - last 24 hr 06/05/21 07:05: WBC 15.6 H, RBC 3.66 L, Hgb 10.9 L, Hct 32.0 L, MCV 87.4, MCH 29.8, MCHC 34.1, RDW Std Deviation 41.1, RDW Coeff of Sandra 12.9, Plt Count 200, MPV 9.7, Immature Gran % (Auto) 1.500 H, Neut % (Auto) 72.4 H, Lymph % (Auto) 18.2 L, [place] % (Auto) 6.5, Eos % (Auto) 1.2, Baso % (Auto) 0.2, Absolute Neuts (auto) 11.3 H, Absolute Lymphs (auto) 2.84, Nucleated RBC % 0 06/05/21 07:35: Blood Type A NEGATIVE, Antibody Screen NEGATIVE 06/06/21 04:50: WBC 18.6 H, RBC 3.41 L, Hgb 10.0 L, Hct 30.2 L, MCV 88.6, MCH 29.3, MCHC 33.1, RDW Std Deviation 40.9, RDW Coeff of Sandra 12.7, Plt Count 204, MPV 10.0 Micro: Microbiology 06/05/21 08:10 Nasal Secretion SARS-CoV-2 Antigen (Rapid) - Final Physical Exam Const alert, oriented x3 and no apparent distress HEENT normocephalic Head and Scalp: atraumatic Neck full ROM Resp normal respiratory effort Cardio regular rate GI normal to inspection, nondistended, normoactive bowel sounds GI Narrative: Uterus 2 cm below umbilicus Back/Spine normal ROM Extremity normal to inspection Extremity Narrative: Minimal pedal edema Neuro no focal motor deficits and no sensory deficits noted Psych mental status grossly normal and affect normal Assessment & Plan (1) state: PLAN: day 1 status post VAVD. Hemoglobin stable. Isolated elevated blood pressure, asymptomatic. Breast-feeding. Home today with 2-week telehealth visit in 6-week visit. (2) Vaginal delivery:
--- NOTE | 2021-06-06 07:43 | PCM.DC ---
Discharge Instructions Diet Discharge Diet: No restrictions Activity Discharge Activity: Return to Normal Activity and May Shower May resume sexual activity in: 4-6 weeks Weight Bearing Status: Weight bearing as tolerated Lifting Restrictions: No greater than 25 pounds Dressing / Incision Call your doctor if you observe: Fever of 101 or Higher, Change in Color, Inability to urinate, Using more than 1 pad per hour, Shortness of breath, Dizziness, Swelling in the ankles, Chest pain and Calf discomfort Follow Up Care Please Follow Up With: Alec Barber MD When: 2-week telehealth appointment and 6-week visit Test Results: Test results from this visit will be discussed in further detail at your follow-up appointment, if applicable. Discharge Plan Admission Admit Date/Time: 06/05/21 07:05 Primary Reason for Your Visit: Labor, Vaginal delivery Attending Provider: Ira Cee Primary Care Provider: Care Physician,Kecia Primary Discharge Orders/Prescriptions Prescriptions: No Action 1 mg Tablet 1 tab PO DAILY RF: 0 Referrals / Follow Up: Care Physician,No Primary [Primary Care Provider] - Disposition Disposition (needs filled in before D/C Order can be placed): Home, Self Care
== END 2021-06-06 16:35 | disposition home or self-care (01) | DRG 560 ==
PROVIDERS: Admitting Provider Student in an Organized Health Care Education/Training Program; Visit Provider Student in an Organized Health Care Education/Training Program
DX: O76 Abnormality in fetal heart rate and rhythm complicating labor and delivery (principal); Z37.0 Single live birth; O36.8130 Decreased fetal movements, third trimester, not applicable or unspecified; O99.214 Obesity complicating childbirth; E66.9 Obesity, unspecified; Z3A.40 40 weeks gestation of pregnancy; Z87.891 Personal history of nicotine dependence
CPT/HCPCS: 59025; 59050; 85025; 85027; 86850; 86900; 86901; 87426; 99218; J7120; G0378

== ENCOUNTER 2021-11-23 12:44 | Emergency (ER) | payer MEDICAID, SELFPAY ==
[2021-11-23 12:45] VITALS: BP 138/89; PULSE 95; RESP 16; TEMP 36.5; O2SAT 97; BMI 34.7
--- NOTE | 2021-11-23 13:15 | EX.ED.DYSGE1 ---
HPI History of Present Illness Chief Complaint: Abscess Detail of Chief Complaint: Abscess left buttocks Informant: patient and spouse/S.O. Onset/Context/Timing Onset: Weeks (Onset 1 week ago) Context: Gradual Onset Timing: Continuous Quality: Red swollen painful area Location: Left buttocks Current Severity: Moderate Maximum Severity: Moderate Worsened by: Sitting Relieved by: Nothing Associated Symptoms Associated Symptoms: No associated symptoms Narrative Narrative: Patient is a 30-year-old woman who presents because of red swollen painful area left buttocks. This started 1 week ago. She is not immune suppressed. She is on no immunosuppressive meds. She denies history of diabetes. Denies history of medic fever, heart murmur, SBE. She denies fever or chills. She denies ocular symptoms. She denies shortness of breath. She denies nausea, vomiting diarrhea. She denies polyuria polydipsia. Prior similar symptoms: Yes (1 to 2 years ago) Recent Illness/Hospitalization: No PFSH PFSH Medical History Depression Home Medications [id number] [] 1 tab PO DAILY 04/08/21 [History Last Taken 05/30/21 15:00] cephalexin 500 mg PO Q6 #28 capsule 11/23/21 [Rx Last Taken Unknown] hydrocodone-acetaminophen 1 tab PO Q6H PRN PRN 3 Days #10 tablet 11/23/21 [Rx Last Taken Unknown] sulfamethoxazole-trimethoprim 1 tab PO BID #14 tablet 11/23/21 [Rx Last Taken Unknown] Allergy/AdvReac Type Severity Reaction Status Date / Time No Known Allergies Allergy Verified 11/23/21 12:45 Surgical History History of cholecystectomy Social History (Updated 11/23/21 @ 13:[address] Evelio Navarro MD) household members: spouse and children Smoking Status: Current every day smoker tobacco type: cigarettes substance use type: does not use ROS ROS ED Constitutional Constitutional ED: Denies chills, fever(s), subjective, sweats or weight loss Eyes Eyes: Denies blurry vision, change in vision or diplopia ENT ENT ED: Denies ear pain, rhinorrhea or sore throat Cardiovascular Cardiovascular: Denies chest pain or palpitations Respiratory/Chest Respiratory/Chest: Denies cough, dyspnea or dyspnea on exertion Gastrointestinal Gastrointestinal: Denies nausea or vomiting Musculoskeletal Musculoskeletal: Denies arthralgias, back pain, myalgias or neck pain Integumentary Reports abscess and rash; Denies Abrasions Endocrine Endocrinology: Denies polydipsia, polyphagia or polyuria Hematologic/Lymphatic Hematologic/Lymphatic: Denies anemia, easy bleeding, easy bruising or lymphadenopathy EXAM Physical Exam Const Vital Signs: 11/23/21 12:45 Temperature 97.7 F L Temperature Source Temporal Pulse Rate 95 Respiratory Rate 16 Blood Pressure 138/89 H Blood Pressure Mean 105 Pulse Ox 97 Oxygen Delivery Method Room Air Positive well nourished, well developed and obese General Appearance ED: well developed and NAD; Negative for pallor Nutritional Appearance: obese HEENT Reports moist mucous membranes HEENT Narrative: Ears normal. Nares patent. Negative for trauma or tenderness Eyes PERRL and EOMs intact bilaterally General Eye ED: Negative for pale conjunctiva or scleral icterus Neck no lymphadenopathy, supple and no JVD Chest Wall inspection of chest normal and palpation of chest normal Resp normal respiratory effort and clear to auscultation bilaterally Effort and Inspection: Negative for pain with movement Cardio regular rate, regular rhythm, S1 normal heart sound, S2 normal heart sound and no murmurs Back/Spine no CVA tenderness Thoracic Spine / Upper Back: Negative for thoracic spinal tenderness or paraspinal muscle tenderness Extremity normal to inspection General Extremety ED: Negative for edema or tenderness General Extremity: Negative for edema Neuro oriented x3 and CN's II-XII intact bilaterally Sensorium / Orientation: alert Psych mental status grossly normal Skin No no rashes or lesions noted and no wounds Skin Narrative: There is an area of erythema consistent with cellulitis that is 5 cm in diameter. There is fluctuance. Findings are consistent with abscess and cellulitis. Since patient has no antibiotic allergies treated with cephalexin and Bactrim. She was consented for I&D. General Skin Exam: Negative for jaundice or pallor MDM MDM MDM Narrative Medical decision making narrative: Cellulitis abscess left buttocks requiring I&D. Patient was treated with cephalexin and Bactrim and please read procedure note Patient was discharged home with prescription for cephalexin, Bactrim and hydrocodone Procedures Other Procedures Procedure(s): Patient was consented for I&D of left buttocks abscess. The area was prepped draped sterile manner. The abscess was anesthetized with 1% lidocaine for local metrician and field block. Patient was assessed prior to making incision to assure she did not have any sensation. She did not. Incision was made 10 blade. The incision is 2.5 cm in length. Once the abscess cavity was entered thick green-brown fluid was noted. Blunt dissection was undertaken with more purulent material noted. The cavity was irrigated. 1 inch iodoform gauze was placed for wick. Patient also received p.o. [place] for her discomfort. Discharge Plan Triage Chief Complaint: Abscess ED Provider: Evelio Navarro Dx/Rx/DC Orders Clinical Impression: Cellulitis and abscess of buttock Instructions: ED Abscess Incision And Drainage, ED Cellulitis Prescriptions: New sulfamethoxazole-trimethoprim [sulfamethoxazole-trimethoprim] 1 TABLET tablet 1 tab PO BID Qty: 14 RF: 0 cephalexin [cephalexin] 500 MG capsule 500 mg PO Q6 Qty: 28 RF: 0 hydrocodone-acetaminophen [hydrocodone-acetaminophen] 1 TABLET tablet 1 tab PO Q6H PRN PRN (Reason: Pain) 3 Days Qty: 10 RF: 0 No Action 1 mg Tablet 1 tab PO DAILY RF: 0 Primary Care Provider: Laura Pete Referrals: Laura Pete MD [Primary Care Provider] - 2 Days for wound check Activity Restrictions/Additional Instructions: Follow-up with your doctor to have wick removed in 2 days. Disposition Disposition: Home, Self Care
[2021-11-23] MEDS: Smz/Tmp Ds Tablet 1 TABLET PO (14:06)
[2021-11-23] MEDS: Cephalexin 500 MG Capsule PO (14:06)
[2021-11-23] MEDS: HYDROcodone Bitartrate/Apap 5/325 Tablet PO (14:06)
== END 2021-11-23 14:13 | disposition home or self-care (01) ==
PROVIDERS: Emergency Provider Emergency Medicine; PCP Internal Medicine; Visit Provider Emergency Medicine
DX: L02.31 Cutaneous abscess of buttock (principal); L03.317 Cellulitis of buttock; E66.9 Obesity, unspecified; F17.210 Nicotine dependence, cigarettes, uncomplicated; Z68.34 Body mass index [BMI] 34.0-34.9, adult
CPT/HCPCS: 10060; 99283

== ENCOUNTER 2022-03-01 12:04 | Emergency (ER) | payer MEDICAID, SELFPAY ==
[2022-03-01 12:05] VITALS: BP 136/93; PULSE 66; RESP 14; TEMP 36.4; O2SAT 98; BMI 32.0
--- NOTE | 2022-03-01 12:35 | CT_ITS ---
STUDY: CT ABDOMEN AND PELVIS WITH CONTRAST REASON FOR EXAM: Female, 31 years old. Abdominal pain RADIATION DOSAGE (If Supplied By Facility): CTDIvol = ( 17.56 ) mGy, DLP = ( 997.44 ) mGycm TECHNIQUE: Transaxial images were obtained from the dome of the diaphragm to the symphysis pubis without oral contrast. IV 100mL Isovue-370 was administered. Sagittal and coronal images were reconstructed. Individualized dose optimization techniques were used for this CT. COMPARISON: 02/21/2020 FINDINGS: The visualized lung bases are unremarkable. The visualized portions of the heart are within normal limits. Normal liver. There are surgical clips in the gallbladder fossa consistent with a prior cholecystectomy. Normal spleen. Normal pancreas. Normal bilateral adrenal glands. Normal right kidney. Normal left kidney. Normal visualized stomach. Normal small intestine. The colon is incompletely distended. There is stable intramural fat system with prior inflammation. There are scattered diverticula arising from the colon. The appendix is visualized and appears normal. There is circumferential wall thickening of the rectum. Normal abdominal aorta. Normal inferior vena cava. Normal retroperitoneum. There is an intrauterine device in place and a grossly satisfactory position. Normal urinary bladder. There are postsurgical changes along the anterior abdominal wall. Within the supraumbilical region there is a 0.5 x 0.6 x 3.9 cm subcutaneous fluid collection. Within the infraumbilical region there is a 1.5 x 1.2 x 4.4 cm fluid focus. Both fluid collections appear to have thickened hightower. There are mild degenerative changes within the lower thoracic and lumbar spine. CT/Abdomen/Pelvis W IV Cont ONLY IMPRESSION: Two fluid collections within the anterior abdominal wall 0.5 x 0.6 x 3.9 cm within the supraumbilical region and 1.5 x 1.2 x 4.4 cm within the infraumbilical region, may reflect underlying seroma is however cannot exclude abscesses. Circumferential wall thickening of the rectum, this may be secondary to its incompletely distended state however cannot exclude proctitis. Colonic diverticulosis. Electronically Signed: Shayna Mott MD at 14:22 EDT ,
--- NOTE | 2022-03-01 12:36 | EDS_ITS ---
HPI History of Present Illness Chief Complaint: Abd Pain Informant: patient Narrative Narrative: 31-year-old female presenting to the emergency room with epigastric pain. Patient states that she has had episodic pain for 2-1/2 years. She states that her primary care physician saw her referred her to gastroenterology. She states that she saw a mirror fabrication supervisor but does not remember who. She states she had an abdominal ultrasound that was negative. He was at the start of COVID and nobody was doing endoscopy so she tried to wait it out. Yesterday she began to have a another episode after eating pizza. She has had prior cholecystectomy. She notes radiation to her back. She denies a history of pancreatitis. She notes nausea vomiting and diarrhea. She does note that she does have chronic diarrhea. No diagnoses of ulcerative colitis or Crohn's disease. She states that she is not currently on any medications. PFSH PFS Medical History Depression Smoker Home Medications acetaminophen 325 mg tablet (Tylenol) 650 mg PO Q6H PRN Pain 03/01/22 [History Last Taken Unknown] Allergy/AdvReac Type Severity Reaction Status Date / Time No Known Allergies Allergy Verified 03/01/22 12:06 Surgical History History of abdominoplasty History of cholecystectomy Social History household members: spouse and children Smoking Status: Current every day smoker tobacco type: cigarettes substance use type: does not use ROS ROS ED Constitutional Constitutional ED: Denies chills or weight loss Eyes Eyes: Denies change in vision or diplopia ENT ENT ED: Denies ear pain, rhinorrhea or sore throat Cardiovascular Cardiovascular: Denies chest pain, orthopnea, palpitations or racing heartbeat Respiratory/Chest Respiratory/Chest: Denies cough, dyspnea or orthopnea Gastrointestinal Gastrointestinal: Reports abdominal pain, diarrhea, nausea and vomiting Genitourinary Genitourinary ED: Denies dysuria, hematuria or urinary frequency Musculoskeletal Musculoskeletal: Denies arthralgias or myalgias Integumentary Denies abscess or rash Neurologic Neurologic: Denies headache(s) or weakness Psychiatric Psychiatric: Denies anxiety, depression, suicidal ideation or suicidal thoughts Endocrine Endocrinology: Denies polydipsia, polyphagia or polyuria Allergic/Immunologic Allergic/Immunologic ED: Denies mouth swelling, tongue swelling or urticaria EXAM Physical Exam Narrative Exam Narrative: Patient is sitting up in the bed rocking back and forth holding her upper abdomen. Const Vital Signs: 03/01/22 12:05 03/01/22 13:56 Temperature 97.6 F L Temperature Source Temporal Pulse Rate 66 73 Respiratory Rate 14 15 Blood Pressure 136/93 H 124/82 H Blood Pressure Mean 107 96 Pulse Ox 98 97 Oxygen Delivery Method Room Air Room Air Positive well nourished and well developed General Appearance ED: well developed HEENT Reports normocephalic, head/scalp atraumatic and moist mucous membranes Eyes PERRL and EOMs intact bilaterally Neck no lymphadenopathy, supple and no JVD Resp normal respiratory effort and clear to auscultation bilaterally Cardio regular rate, regular rhythm and no murmurs GI Auscultation: normoactive bowel sounds Palpation: soft, tender epigastric and guarding; Negative for rebound tenderness present Back/Spine no CVA tenderness and normal ROM Extremity normal to inspection General Extremety ED: Negative for edema General Extremity: Negative for edema Neuro oriented x3 and CN's II-XII intact bilaterally Sensorium / Orientation: alert Motor Exam: strength 5/5 throughout Psych mental status grossly normal Mood & Affect: Negative for depressed or tearful Skin no rashes or lesions noted and no wounds MDM MDM MDM Narrative Medical decision making narrative: Blood work showed a white count of 11. CO2 is 16 liver enzymes are normal lipase is normal creatinine 0.67. CT abdomen pelvis demonstrates several small areas consistent with a seroma based on the physical exam fact that these are not tender and there is no erythema with a that these are seromas probable from her cholecystectomy. Patient received a GI cocktail and morphine and Zofran and has been feeling better. I will write for the patient to have Zofran and also start her on Protonix. Advised that she most likely needs an EGD and colonoscopy. She would benefit from GI evaluation. I will also write for Bentyl and a few [place]. Refills given return instructions given, patient noted understanding Lab Data Attestation: I reviewed the patient's lab results. Labs: Laboratory Results - last 24 hr 03/01/22 03/01/22 03/01/22 13:21 13:21 13:21 WBC 11.0 RBC 5.00 Hgb 14.4 Hct 43.5 MCV 87.0 MCH 28.8 MCHC 33.1 RDW Std Deviation 44.2 H RDW Coeff of Sandra 14.0 Plt Count 264 MPV 10.1 Immature Gran % (Auto) 0.400 Neut % (Auto) 85.4 H Lymph % (Auto) 9.4 L [place] % (Auto) 4.5 Eos % (Auto) 0.2 Baso % (Auto) 0.1 Absolute Neuts (auto) 9.4 H Absolute Lymphs (auto) 1.03 Nucleated RBC % 0 Sodium 137 Potassium 4.4 Chloride 110 H Carbon Dioxide 16.0 L Anion Gap 11 BUN 7 Creatinine 0.67 Estim Creat Clear Calc 96.22 Est GFR (MDRD) Af Amer 132 Est GFR (MDRD) Non-Af 109 BUN/Creatinine Ratio 10.5 Glucose 75 Calcium 9.0 Total Bilirubin 0.40 Direct Bilirubin 0.10 AST 12 L ALT 22 Alkaline Phosphatase 96 Total Protein 7.9 Albumin 3.7 Globulin 4.2 Lipase 60 L Serum , Qual NEGATIVE Urine Color Urine Clarity Urine pH Ur Specific [place] Urine Protein Urine Glucose (UA) Urine Ketones Urine Occult Blood Urine Nitrite Urine Bilirubin Urine Urobilinogen Ur Leukocyte Esterase Urine RBC Urine WBC Ur Squamous Epith Cells Urine Bacteria Urine Mucus 03/01/22 14:37 WBC RBC Hgb Hct MCV MCH MCHC RDW Std Deviation RDW Coeff of Sandra Plt Count MPV Immature Gran % (Auto) Neut % (Auto) Lymph % (Auto) [place] % (Auto) Eos % (Auto) Baso % (Auto) Absolute Neuts (auto) Absolute Lymphs (auto) Nucleated RBC % Sodium Potassium Chloride Carbon Dioxide Anion Gap BUN Creatinine Estim Creat Clear Calc Est GFR (MDRD) Af Amer Est GFR (MDRD) Non-Af BUN/Creatinine Ratio Glucose Calcium Total Bilirubin Direct Bilirubin AST ALT Alkaline Phosphatase Total Protein Albumin Globulin Lipase Serum , Qual Urine Color Yellow Urine Clarity Clear Urine pH 5.0 Ur Specific [place] 1.015 Urine Protein 30 H Urine Glucose (UA) Normal Urine Ketones 150 A* Urine Occult Blood 250 H Urine Nitrite Negative Urine Bilirubin Negative Urine Urobilinogen Normal Ur Leukocyte Esterase Negative Urine RBC 0 SEEN Urine WBC 0-5 SEEN Ur Squamous Epith Cells 0-5 SEEN Urine Bacteria 0 SEEN Urine Mucus 0 SEEN Radiography Diagnostic Testing: Clinical Impression(s) from Imaging Studies Abdomen/Pelvis CT 03/01/22 12:35 IMPRESSION: Two fluid collections within the anterior abdominal wall 0.5 x 0.6 x 3.9 cm within the supraumbilical region and 1.5 x 1.2 x 4.4 cm within the infraumbilical region, may reflect underlying seroma is however cannot exclude abscesses. Circumferential wall thickening of the rectum, this may be secondary to its incompletely distended state however cannot exclude proctitis. Colonic diverticulosis. Electronically Signed: Shayna Mott MD at 14:22 EDT , Discharge Plan Triage Chief Complaint: Abd Pain ED Provider: Guido Carranza Dx/Rx/DC Orders Prescriptions: No Action acetaminophen [Tylenol] 325 mg Tablet 650 mg PO Q6H PRN (Reason: Pain) Primary Care Provider: aLura Pete Referrals: Laura Pete MD [Primary Care Provider] -
[2022-03-01 13:34] LABS: Absolute Lymphocyte Count 1.03 X10^3/uL (0.83-4.51); Absolute Neutrophil Count 9.4 X10^3/uL (2.0-7.7); Basophil# 0.01 X10^3/uL; Basophil% 0.1 % (0-1); Eosinophil# 0.02 X10^3/uL; Eosinophils% 0.2 % (0-5); Hematocrit 43.5 % (37-47); Hemoglobin 14.4 g/dL (12.0-15.0); Lymphocyte # 1.03 X10^3/ul (0.83-4.51); Lymphocyte % 9.4 % (19-41); Mean Corp Hgb Conc 33.1 g/dL (32-36); Mean Corpuscular Hgb 28.8 pg (27.0-32.0); Mean Platelet Vol. 10.1 fl (6.2-12.0); Monocyte# 0.49 X10^3/uL; Monocyte% 4.5 % (0-10); NRBC Flagged by Analyzer 0 % (0-5); Neutrophil # 9.37 X10^3/uL (2.7-7.7); Neutrophil % 85.4 % (47-70); Platelet Count 264 K/mm3 (150-450); RBC Distribution Width SD 44.2 fl (35.1-43.9)
[2022-03-01 13:50] LABS: AST(SGOT) 12 U/L (15-37); Alanine Aminotransfer ALT/SGPT 22 U/L (13-56); Albumin, Serum 3.7 g/dL (3.2-5.0); Alkaline Phosphatase 96 U/L (45-117); Anion Gap 11 (5-15); BUN 7 mg/dL (7-18); BUN/Creat Ratio 10.5 RATIO (10-20); Chloride 110 mmol/L (98-107); Creatinine, Serum 0.67 mg/dL (0.55-1.02); EST Glomerular Filtration Rate 109 mL/min (>60); Est Glom Filt Rate - Afr Amer 132 mL/min (>60); Estimated Creatinine Clearance 96.22 ml/min; Globulin 4.2 g/dL (2.2-4.2); Glucose 75 mg/dL (74-106); Lipase 60 U/L (73-393); Potassium 4.4 mmol/L (3.5-5.1); Protein, Total 7.9 g/dL (6.4-8.2); Sodium Level 137 mmol/L (136-145)
[2022-03-01 13:51] LABS: Internal QC Validated? YES +Cl - CLEAR BKGD; Pregnancy, Serum, hCG Quali. NEGATIVE Negative
[2022-03-01 13:56] VITALS: BP 124/82; PULSE 73; RESP 15; O2SAT 97
[2022-03-01] MEDS: Mag Hydrox/Al Hydrox/Simeth 30 ML UDC PO (13:59)
[2022-03-01] MEDS: Morphine 4 MG/ML Syringe IV (13:59)
[2022-03-01] MEDS: Ondansetron 4 MG/2 ML Vial IV (13:59)
[2022-03-01 14:41] LABS: Bacteria 0 SEEN /hpf (None Seen); Mucous, Urine 0 SEEN /hpf (<or=2+); Red Blood Cells-Urine 0 SEEN /hpf (0-5)
[2022-03-01 14:45] LABS: Color, Urine Yellow (Yellow); Glucose, Dipstick Normal (Normal); Leukocyte Esterase-Dipstick Negative /ul (Negative); Nitrite-Dipstick Negative (Negative); Occult Blood-Urine 250 /ul (Negative); Protein-Dipstick 30 mg/dl (Negative); Specific Gravity, Urine 1.015 (1.002-1.030); Urine Bilirubin Dipstick Negative (Negative); Urine Clarity Clear (Clear); Urine Urobilinogen Normal (Normal)
[2022-03-01 14:51] LABS: Ketone-Dipstick 150 mg/dl (Negative)
[2022-03-01 15:06] LABS: Squamous Epithelial Cells - UA 0-5 SEEN /hpf (5-10); White Blood Cells 0-5 SEEN /hpf (0-5)
[2022-03-01 15:29] VITALS: BP 118/79; PULSE 63; RESP 16; O2SAT 97
== END 2022-03-01 15:38 | disposition home or self-care (01) ==
PROVIDERS: Emergency Provider Emergency Medicine; PCP Internal Medicine; Visit Provider Emergency Medicine
DX: R10.13 Epigastric pain (principal); F17.210 Nicotine dependence, cigarettes, uncomplicated; Z90.49 Acquired absence of other specified parts of digestive tract
CPT/HCPCS: 74177; 80048; 80076; 81001; 83690; 84703; 85025; 96374; 96375; 99284; J7030; Q9967; A4216; J2405

== ENCOUNTER 2022-03-21 07:40 | Emergency (ER) | payer MEDICAID, SELFPAY ==
[2022-03-21 07:41] VITALS: BP 134/112; PULSE 76; RESP 18; TEMP 36.2; O2SAT 98; BMI 31.2
--- NOTE | 2022-03-21 08:02 | ED.VIS.GI ---
HPI HPI - GI History of Present Illness Chief Complaint: Abd Pain Abdominal Pain/Flank Pain Onset: Today Context: Sudden Onset Timing: Continuous Quality: Cramping Location: Epigastric Worsened by: Food Relieved by: Nothing Nausea/Vomiting/Emesis GI Symptom: Positive for Nausea and Vomiting Quality: Positive for Nonbilious; Negative for Blood streaks, Coffee ground or Hematemesis Diarrhea/Melena/Hematochezia GI Symptom: Negative for Diarrhea, Melena or Hematochezia Associated Symptoms Associated Symptoms: Negative for Dysuria, Frequency or Hematuria LMP: Current Narrative Narrative: Patient presents with abdominal pain that began this morning. Patient states it began after eating. Patient states it came on suddenly. Patient states her pain is over the epigastric area and radiates into her back. Patient describes her pain as cramping. Patient admits to some nausea and vomiting. Patient denies any hematemesis or coffee-ground emesis. Patient denies any diarrhea, melena, or hematochezia. Patient denies any urinary complaints. Patient is currently on her menstrual cycle. PFSH PFSH Medical History Depression Smoker Home Medications acetaminophen 325 mg tablet (Tylenol) 650 mg PO Q6H PRN Pain 03/01/22 [History Last Taken Unknown] hydrocodone-acetaminophen 5-325mg 5mg-325mg 1 tab PO Q6H PRN PRN Pain 3 days #12 TABLETS 03/01/22 [Rx Last Taken Unknown] ondansetron 4 mg disintegrating tablet 4 mg PO Q6H PRN PRN Nausea #15 tabs 03/01/22 [Rx Last Taken Unknown] dicyclomine 20 mg tablet 20 mg PO TID PRN pain #30 tabs 03/21/22 [Rx Last Taken Unknown] pantoprazole 40 mg tablet,delayed release (Protonix) 40 mg PO DAILY #30 tabs 03/21/22 [Rx Last Taken Unknown] Allergy/AdvReac Type Severity Reaction Status Date / Time No Known Allergies Allergy Verified 03/21/22 07:41 Surgical History History of abdominoplasty History of cholecystectomy Social History household members: spouse and children Smoking Status: Current every day smoker tobacco type: cigarettes substance use type: does not use ROS ROS ED Constitutional Constitutional ED: Denies chills or fever(s) Eyes Eyes: Denies blurry vision or change in vision ENT ENT ED: Denies rhinorrhea or sore throat Cardiovascular Cardiovascular: Denies chest pain or palpitations Respiratory/Chest Respiratory/Chest: Denies cough or dyspnea Gastrointestinal Gastrointestinal: Reports abdominal pain, nausea and vomiting; Denies diarrhea or melena Genitourinary Genitourinary ED: Denies dysuria or hematuria Musculoskeletal Musculoskeletal: Reports back pain; Denies neck pain Integumentary Denies abscess or rash Neurologic Neurologic: Denies headache(s) or weakness Allergic/Immunologic Allergic/Immunologic ED: Denies mouth swelling or urticaria EXAM Physical Exam Const Vital Signs: 03/21/22 07:41 03/21/22 09:40 03/21/22 11:00 Temperature 97.1 F L Temperature Source Temporal Pulse Rate 76 Respiratory Rate 18 16 16 Blood Pressure 134/112 H Blood Pressure Mean 119 Pulse Ox 98 Oxygen Delivery Method Room Air Positive well nourished and well developed General Appearance ED: well developed and NAD HEENT Reports moist mucous membranes Neck supple and no JVD Resp normal respiratory effort and clear to auscultation bilaterally Cardio regular rate, regular rhythm and no murmurs GI normal to inspection, nondistended, normoactive bowel sounds Palpation: soft and tender epigastric; Negative for guarding or rebound tenderness present Extremity normal to inspection General Extremety ED: Negative for edema or tenderness General Extremity: Negative for edema Neuro oriented x3, CN's II-XII intact bilaterally and no sensory deficits noted Sensorium / Orientation: alert Motor Exam: strength 5/5 throughout Psych mental status grossly normal Skin no rashes or lesions noted MDM MDM MDM Narrative Medical decision making narrative: Patient was given IV fluids, morphine, Zofran, and Bentyl. CBC was within normal limits. Comprehensive metabolic profile was within normal limits. Lipase was normal. Serum hCG was negative. Urinalysis does not show any evidence of urinary tract infection. CT scan of the abdomen pelvis was obtained. There is no acute process noted. This was interpreted by the radiologist and reviewed by myself. Patient was advised of her findings. Patient was instructed to continue her Protonix as prescribed. Patient was given a prescription for Bentyl. Patient was instructed to follow-up with her primary care physician in 5 to 7 days. Patient was instructed to follow-up with gastroenterology in 5 to 7 days. Patient was instructed to eat a bland diet. Patient was instructed to return if worse in any way. Patient understood and was agreeable with the plan. All questions were answered. Lab Data Attestation: I reviewed the patient's lab results. Labs: Laboratory Results - last 24 hr 03/21/22 03/21/22 03/21/22 08:30 08:30 08:30 WBC 8.6 RBC 5.21 Hgb 14.5 Hct 45.0 MCV 86.4 MCH 27.8 MCHC 32.2 RDW Std Deviation 48.1 H RDW Coeff of Sandra 15.3 H Plt Count 257 MPV 10.5 Immature Gran % (Auto) 0.100 Neut % (Auto) 79.5 H Lymph % (Auto) 12.4 L Hubbard % (Auto) 5.6 Eos % (Auto) 2.3 Baso % (Auto) 0.1 Absolute Neuts (auto) 6.8 Absolute Lymphs (auto) 1.06 Nucleated RBC % 0 Sodium 141 Potassium 3.5 Chloride 107 Carbon Dioxide 27.0 Anion Gap 7 BUN 9 Creatinine 0.84 Estim Creat Clear Calc 76.75 Est GFR (MDRD) Af Amer 102 Est GFR (MDRD) Non-Af 84 BUN/Creatinine Ratio 10.8 Glucose 108 H Calcium 9.2 Total Bilirubin 0.50 AST 17 ALT 34 Alkaline Phosphatase 82 Total Protein 8.4 H Albumin 4.1 Globulin 4.3 H Albumin/Globulin Ratio 1.0 Lipase 162 Serum , Qual NEGATIVE Urine Color Urine Clarity Urine pH Ur Specific [place] Urine Protein Urine Glucose (UA) Urine Ketones Urine Occult Blood Urine Nitrite Urine Bilirubin Urine Urobilinogen Ur Leukocyte Esterase Urine RBC Urine WBC Ur Squamous Epith Cells Urine Bacteria Urine Mucus 03/21/22 10:30 WBC RBC Hgb Hct MCV MCH MCHC RDW Std Deviation RDW Coeff of Sandra Plt Count MPV Immature Gran % (Auto) Neut % (Auto) Lymph % (Auto) Hubbard % (Auto) Eos % (Auto) Baso % (Auto) Absolute Neuts (auto) Absolute Lymphs (auto) Nucleated RBC % Sodium Potassium Chloride Carbon Dioxide Anion Gap BUN Creatinine Estim Creat Clear Calc Est GFR (MDRD) Af Amer Est GFR (MDRD) Non-Af BUN/Creatinine Ratio Glucose Calcium Total Bilirubin AST ALT Alkaline Phosphatase Total Protein Albumin Globulin Albumin/Globulin Ratio Lipase Serum , Qual Urine Color Yellow Urine Clarity Clear Urine pH 5.0 Ur Specific [place] 1.010 Urine Protein 30 H Urine Glucose (UA) Normal Urine Ketones 50 H Urine Occult Blood 250 H Urine Nitrite Negative Urine Bilirubin Negative Urine Urobilinogen Normal Ur Leukocyte Esterase Negative Urine RBC 10-25 SEEN Urine WBC 0-5 SEEN Ur Squamous Epith Cells 5-10 SEEN Urine Bacteria 1+ Urine Mucus 0 SEEN Radiography Diagnostic Testing: Clinical Impression(s) from Imaging Studies Abdomen/Pelvis CT 03/21/22 08:08 IMPRESSION: Normal enhanced CT of the abdomen and pelvis. Electronically Signed: Wilton Salvador MD at 11:45 EDT , Discharge Plan Triage Chief Complaint: Abd Pain ED Provider: Florin Norwood Dx/Rx/DC Orders Clinical Impression: Abdominal pain Instructions: ED Abdominal Pain Unkn Cause Fem, ED Gastritis Ulcer No Abx Prescriptions: Continued dicyclomine 20 mg tablet 20 mg PO TID PRN (Reason: pain) Qty: 30 0RF pantoprazole [Protonix] 40 mg tablet,delayed release (DR/EC) 40 mg PO DAILY Qty: 30 0RF No Action acetaminophen [Tylenol] 325 mg Tablet 650 mg PO Q6H PRN (Reason: Pain) hydrocodone-acetaminophen [hydrocodone-acetaminophen] 5-325 mg tablet 1 tab PO Q6H PRN PRN (Reason: Pain) 3 Days Qty: 12 0RF ondansetron [ondansetron] 4 mg tablet,disintegrating 4 mg PO Q6H PRN PRN (Reason: Nausea) Qty: 15 0RF Primary Care Provider: Laura Pete Referrals: Laura Pete MD [Primary Care Provider] - 3-5 Days Enrique Knowles DO [Med Staff - Active Staff] - 3-5 Days Disposition Disposition: Home, Self Care
--- NOTE | 2022-03-21 08:08 | CT_ITS ---
STUDY: CT ABDOMEN AND PELVIS WITH CONTRAST REASON FOR EXAM: Female, 31 years old. Abdominal pain -- IV PO Contrast RADIATION DOSAGE (If Supplied By Facility): CTDIvol = ( 14.28 ) mGy, DLP = ( 655.42 ) mGycm TECHNIQUE: Transaxial images were obtained from the dome of the diaphragm to the symphysis pubis with oral contrast. Oral and amp; IV Gastrografin and amp; 100mL Isovue-370 was administered. Sagittal and coronal images were reconstructed. Individualized dose optimization techniques were used for this CT. COMPARISON: 03/01/2022 FINDINGS: The visualized lung bases are unremarkable. The visualized portions of the heart are within normal limits. Normal liver. There are surgical clips in the gallbladder fossa consistent with a prior cholecystectomy. Normal spleen. Normal pancreas. Normal bilateral adrenal glands. Normal right kidney. Normal left kidney. Normal visualized stomach. Normal small intestine. Normal colon. The appendix is visualized and appears normal. Normal abdominal aorta. Normal inferior vena cava. Normal retroperitoneum. Normal urinary bladder. Intrauterine device within the uterus. Normal abdominal wall. Normal osseous structures. CT/Abdomen/Pelvis WITH Contrast IMPRESSION: Normal enhanced CT of the abdomen and pelvis. Electronically Signed: Wilton Salvador MD at 11:45 EDT ,
[2022-03-21] MEDS: Dicyclomine 20 MG/2 ML Vial IM (08:26)
[2022-03-21] MEDS: Ondansetron 4 MG/2 ML Vial IV (08:26)
[2022-03-21] MEDS: 0.9% Normal Saline 1,000 ML 1000 ML IV (08:26)
[2022-03-21] MEDS: Morphine 4 MG/ML Syringe IV (08:27)
[2022-03-21 08:36] LABS: Absolute Lymphocyte Count 1.06 X10^3/uL (0.83-4.51); Absolute Neutrophil Count 6.8 X10^3/uL (2.0-7.7); Basophil# 0.01 X10^3/uL; Basophil% 0.1 % (0-1); Eosinophils% 2.3 % (0-5); Hemoglobin 14.5 g/dL (12.0-15.0); Lymphocyte # 1.06 X10^3/ul (0.83-4.51); Lymphocyte % 12.4 % (19-41); Mean Corp Hgb Conc 32.2 g/dL (32-36); Mean Corpuscular Hgb 27.8 pg (27.0-32.0); Mean Corpuscular Volume 86.4 fL (81-99); Mean Platelet Vol. 10.5 fl (6.2-12.0); Monocyte# 0.48 X10^3/uL; Monocyte% 5.6 % (0-10); NRBC Flagged by Analyzer 0 % (0-5); Neutrophil % 79.5 % (47-70); Platelet Count 257 K/mm3 (150-450); RBC Distribution Width CV 15.3 % (11.6-14.6); RBC Distribution Width SD 48.1 fl (35.1-43.9); Red Blood Count 5.21 M/mm3 (4.2-5.4); White Blood Count 8.6 K/mm3 (4.4-11.0)
[2022-03-21 08:44] LABS: Internal QC Validated? YES +Cl - CLEAR BKGD; Pregnancy, Serum, hCG Quali. NEGATIVE Negative
[2022-03-21 08:53] LABS: AST(SGOT) 17 U/L (15-37); Alanine Aminotransfer ALT/SGPT 34 U/L (13-56); Albumin, Serum 4.1 g/dL (3.2-5.0); Alkaline Phosphatase 82 U/L (45-117); Anion Gap 7 (5-15); BUN 9 mg/dL (7-18); BUN/Creat Ratio 10.8 RATIO (10-20); Calcium,Total 9.2 mg/dL (8.5-10.1); Chloride 107 mmol/L (98-107); Creatinine, Serum 0.84 mg/dL (0.55-1.02); EST Glomerular Filtration Rate 84 mL/min (>60); Est Glom Filt Rate - Afr Amer 102 mL/min (>60); Estimated Creatinine Clearance 76.75 ml/min; Globulin 4.3 g/dL (2.2-4.2); Glucose 108 mg/dL (74-106); Lipase 162 U/L (73-393); Potassium 3.5 mmol/L (3.5-5.1); Protein, Total 8.4 g/dL (6.4-8.2); Sodium Level 141 mmol/L (136-145)
[2022-03-21 09:40] VITALS: RESP 16
[2022-03-21 10:33] LABS: Mucous, Urine 0 SEEN /hpf (<or=2+)
[2022-03-21 10:39] LABS: Color, Urine Yellow (Yellow); Glucose, Dipstick Normal (Normal); Ketone-Dipstick 50 mg/dl (Negative); Leukocyte Esterase-Dipstick Negative /ul (Negative); Nitrite-Dipstick Negative (Negative); Occult Blood-Urine 250 /ul (Negative); Protein-Dipstick 30 mg/dl (Negative); Urine Bilirubin Dipstick Negative (Negative); Urine Clarity Clear (Clear); Urine Urobilinogen Normal (Normal)
[2022-03-21 10:55] LABS: Bacteria 1+ /hpf (None Seen); Red Blood Cells-Urine 10-25 SEEN /hpf (0-5); Squamous Epithelial Cells - UA 5-10 SEEN /hpf (5-10); White Blood Cells 0-5 SEEN /hpf (0-5)
[2022-03-21 11:00] VITALS: RESP 16
== END 2022-03-21 12:05 | disposition home or self-care (01) ==
PROVIDERS: Emergency Provider Emergency Medicine; PCP Internal Medicine; Visit Provider Emergency Medicine
DX: R10.13 Epigastric pain (principal); R11.2 Nausea with vomiting, unspecified; F17.210 Nicotine dependence, cigarettes, uncomplicated; Z90.49 Acquired absence of other specified parts of digestive tract
CPT/HCPCS: 74177; 80053; 81001; 83690; 84703; 85025; 96361; 96372; 96374; 96375; 99284; J7030; Q9967; J2405